=== PATIENT | male | born 1960 | race Caucasian/White ===

== ENCOUNTER 2021-09-17 17:50 | Emergency (ER) | payer MEDICARE, OTHER, SELFPAY ==
--- NOTE | ~2021-09-17 | CT_ITS ---
EXAMINATION: CT HEAD WITHOUT CONTRAST CLINICAL INFORMATION: Right-sided seizure. Question CVA. COMPARISON: CT brain 03/20/2007 TECHNIQUE: Contiguous axial imaging was performed from the skull base to vertex without intravenous administration of contrast. This CT examination was performed using dose optimization techniques as appropriate, variously including the following: *Automated exposure control *Adjustment of mA and/or kV according to patient size (this includes techniques or standardized protocols for targeted exams where dose is matched to indication/reason for exam; i.e. extremities or head) *Use of iterative reconstruction technique DLP: 869 mGy-cm FINDINGS: There are postsurgical changes present from left frontal craniotomy, and along the left orbital wall and the lamina papyracea and the left maxillary sinus. There is opacification of the left maxillary sinus.. Partial opacification left ethmoid sinus. There is encephalomalacia and low attenuation in the left frontal lobe, having a chronic appearance, could be postsurgical in nature. There is prominent artifact from the hardware, limiting evaluation of the underlying brain matter. In the nonobscured portion of the left frontal lobe, no definite acute intracranial hemorrhage is identified. In the remainder of the nonobscured brain,, no acute intracranial hemorrhage is identified. No extra-axial fluid collections are seen. No evidence of edematous territorial infarction is otherwise seen. Mild patchy deep white matter hypodensities suggesting chronic microangiopathy. The mastoid air cells and visualized portions of the paranasal sinuses are well aerated. CT/CT head/brain wo con IMPRESSION: Postsurgical changes including left frontal craniotomy, as described above. Prominent encephalomalacia and hypodensity in the left frontal lobe, appearing chronic in nature, probably reflecting postsurgical changes. Metallic artifact limits evaluation. No definite acute intracranial hemorrhage is identified. Acute infarction superimposed on chronic changes cannot be excluded. Further evaluation with CTA head as clinically warranted. Otherwise, no acute intracranial hemorrhage or edematous territorial infarction is evident by noncontrast CT. Further evaluation with CTA head as clinically warranted. The report will be called to the ordering clinician by a [facility] [employer].
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
--- NOTE | 2021-09-17 17:56 | ECG_ITS ---
Test Reason : RULE OUT STROKE Blood Pressure : / mmHG Vent. Rate : 082 BPM Atrial Rate : 082 BPM P-R Int : 186 ms QRS Dur : 100 ms QT Int : 394 ms P-R-T Axes : 056 -14 002 degrees QTc Int : 460 ms Normal sinus rhythm Minimal voltage criteria for LVH, may be normal variant ( R in aVL ) Inferior infarct , age undetermined Abnormal ECG When compared with ECG of 20-MAR-2007 07:47, No significant change was found Referred By: Javan Rodríguez Electronically Signed By:Martin Chappell
[2021-09-17 18:18] VITALS: BP 161/80; BP 180/90; PULSE 70; PULSE 82; RESP 16; TEMP 36.6; O2SAT 97; BMI 31.4
[2021-09-17 18:58] LABS: MANUAL DIFF FLAG NO
[2021-09-17] MEDS: levETIRAcetam in NaCl (iso-os) 1,000 MG/100 ML PIGGYBACK 400 MG IV (19:07)
[2021-09-17 19:11] LABS: INTERNATIONAL NORM RATIO 1.1 (0.9-1.1); Prothrombin Time 12.9 SEC (9.9-13.0)
[2021-09-17 19:14] LABS: COVID-19 Test Negative (Negative); Partial Thromboplastin Time 32.4 SEC (24.1-38.0)
[2021-09-17 19:17] LABS: Basophils Percent Auto 0.5 % (0-2); Eosinophils Absolute Auto 0.2 X10*3/uL (0.0-0.4); Eosinophils Percent Auto 2.1 % (0-4); Hematocrit 40.3 % (42.0-52.0); Hemoglobin 13.6 g/dl (14.0-18.0); Imm Gran Abs Auto 0.03 X10*3/uL (0.00-0.03); Imm Gran Pct Auto 0.4 % (0.0-0.4); Lymphocytes Absolute Auto 1.1 X10*3/uL (1.2-4.9); Lymphocytes Percent Auto 12.9 % (20-40); Mean Corpuscular HGB Conc 33.7 g/dl (31.0-36.0); Mean Corpuscular Hemoglobin 32.6 pg (27.0-33.0); Mean Corpuscular Volume 96.6 fL (80.0-98.0); Mean Platelet Volume 10.1 fL (9.4-12.4); Monocytes Absolute Auto 0.8 X10*3/uL (0.1-1.2); Monocytes Percent Auto 9.4 % (2-11); Neutrophils Absolute Auto 6.3 x10*3/uL (2.0-8.3); Neutrophils Percent Auto 74.7 % (45-73); Platelet Count 233 X10*3/uL (160-400); Red Blood Count 4.17 X10*6/uL (4.60-5.80); Red Cell Distribution Width 13.8 % (11.0-16.0); White Blood Count 8.4 X10*3/uL (4.8-10.8)
[2021-09-17 19:19] LABS: Alanine Aminotransferase 84 U/L (0-40); Albumin Level 3.8 g/dL (3.5-5.0); Alkaline Phosphatase 137 U/L (39-117); Anion Gap 13 (12-20); Aspartate Amino Transferase 51 U/L (5-37); Bilirubin Total 0.4 mg/dL (0.0-1.0); Blood Urea Nitrogen 23 mg/dL (9-16); Carbon Dioxide 27 mmol/L (22-29); Chloride 108 mmol/L (96-108); Creatinine Clr Calc Pharmacy 115.2; Estimated Glomerular Filt Rate > 60; Glucose Random 191 mg/dL (60-115); Magnesium 1.9 mg/dL (1.6-2.6); Sodium 144 mmol/L (135-145); Total Protein 6.9 g/dL (6.5-8.0)
[2021-09-17 19:43] VITALS: BP 139/69; PULSE 72; RESP 16; TEMP 36.7; O2SAT 98
[2021-09-17 20:11] LABS: Glucose, Whole Blood 179 mg/dL (60-115)
[2021-09-17] MEDS: Tobramycin Sulfate 0.3% Sol Op 5 ML BTL 2 DROP EYE-LEFT (20:38)
[2021-09-17] MEDS: Amoxicillin/Potassium Clav 875 MG TABLET PO (20:38)
== END 2021-09-17 21:10 | disposition home or self-care (01) ==
PROVIDERS: Emergency Provider Internal Medicine; PCP Internal Medicine
DX: H10.32 Unspecified acute conjunctivitis, left eye (principal); R56.9 Unspecified convulsions; Z79.899 Other long term (current) drug therapy; Z20.822 Contact with and (suspected) exposure to COVID-19
CPT/HCPCS: 36415; 70450; 80053; 82947; 83735; 85025; 85610; 85730; 87635; 93005; 96374; 99283; 99284; J1953

== ENCOUNTER 2022-05-09 14:27 | Emergency (ER) | payer MEDICARE, OTHER, SELFPAY ==
[2022-05-09] VITALS (7 sets, daily range): BP systolic 80–130; BP diastolic 45–103; PULSE 70–93; RESP 16–20; TEMP 36.2–37; O2SAT 94–96; BMI 33.7
--- NOTE | ~2022-05-09 | CT_ITS ---
EXAMINATION: CT CHEST WITH CONTRAST CLINICAL INFORMATION: Leukocytosis. Question pneumonia. COMPARISON: Abdominal CT from earlier in the evening. Chest radiograph from earlier in the evening as well. TECHNIQUE: Multidetector volumetric CT imaging of the chest was obtained after the administration of 65 mL of Omnipaque 350 intravenous contrast without immediate adverse reactions. Axial MIP volume rendering provided. Sagittal and coronal reformatted images were obtained. This CT examination was performed using dose optimization techniques as appropriate, variously including the following: *Automated exposure control *Adjustment of mA and/or kV according to patient size (this includes techniques or standardized protocols for targeted exams where dose is matched to indication/reason for exam; i.e. extremities or head) *Use of iterative reconstruction technique DLP: 474 mGy-cm FINDINGS: WOODWORKING BELT SANDER: Unremarkable. LUNGS: The central airways are patent. Small peripheral tree-in-bud opacities in the right middle lobe are noted. Minimal atelectasis in the lingula. No consolidation. The lungs are otherwise clear. No pneumothorax. MEDIASTINUM: Normal heart size. No pericardial effusion. No mediastinal lymphadenopathy. PLEURA: There is no pleural effusion. No pleural mass or thickening. AXILLA: No lymphadenopathy. UPPER ABDOMEN: Low-attenuation of the liver suggestive of hepatic steatosis. OSSEOUS STRUCTURES: No acute or suspicious osseous abnormality. Mild degenerative change in the spine. CT/CT chest w IV con IMPRESSION: 1. Small peripheral tree-in-bud opacities in the right middle lobe could be infectious or inflammatory. The lungs are otherwise clear. 2. Hepatic steatosis. Fleischner guidelines were followed.
--- NOTE | ~2022-05-09 | CT_ITS ---
EXAMINATION: CT ABDOMEN AND PELVIS WITHOUT CONTRAST CLINICAL INFORMATION: Diarrhea, near syncope. COMPARISON: No similar priors. TECHNIQUE: Multidetector volumetric imaging was performed from the superior aspect of the liver through the pubic symphysis. Sagittal and coronal reformatted images were obtained on the technologist's workstation. This CT examination was performed using dose optimization techniques as appropriate, variously including the following: *Automated exposure control *Adjustment of mA and/or kV according to patient size (this includes techniques or standardized protocols for targeted exams where dose is matched to indication/reason for exam; i.e. extremities or head) *Use of iterative reconstruction technique DLP: 769 mGy-cm FINDINGS: LUNG BASES: Very subtle tree-in-bud nodules in the right middle lobe and lingula. No focal consolidation or pleural effusion. LIVER, GALLBLADDER, AND BILIARY TREE: The liver measures 19.8 cm craniocaudally and demonstrates heterogeneous attenuation of the parenchyma with differential hypointensity of the majority of the right hepatic lobe when compared to the left lobe. There is suggestion of perhaps a minimal nodular contour of the hepatic surface. The background of heterogeneous attenuation limits evaluation of focal liver lesions in this noncontrast examination. Normal appearance of the gallbladder. No biliary ductal dilatation. PANCREAS: Fatty infiltration. No significant peripancreatic fat stranding or free fluid. The main pancreatic duct is nondilated. SPLEEN: Limited noncontrast examination, unremarkable. ADRENAL GLANDS: There is a 1 cm right adrenal nodule measuring less than 10 Hounsfield units in attenuation (3:18). Normal left adrenal gland. KIDNEYS AND URETERS: No hydronephrosis or nephrolithiasis. Bilateral too small to characterize cortical hypodensities that is statistically are in favor to represent simple cysts and for which no imaging follow-up is recommended. BLADDER: Unremarkable. GASTROINTESTINAL TRACT: The stomach and the small bowel are nondilated. The appendix is not definitely identified, however there are no regional inflammatory changes to suspect acute appendicitis. The left hemicolon is under distended limiting assessment of wall thickening. There is moderate amount of stool content in the right hemicolon and rectum. No pericolonic inflammatory changes. No evidence of bowel obstruction. ABDOMINAL WALL: No significant hernia is appreciated. LYMPH NODES: Lyric appearance of the upper mesentery fat with associated prominent mesenteric lymph nodes measuring up to 1 cm short axis. VASCULAR: Limited noncontrast examination. Normal diameter of the abdominal aorta. Atherosclerotic disease. PELVIC VISCERA: Borderline prostatomegaly. OSSEOUS STRUCTURES: Subtle superior endplate deformities at T10 and T11. The are changes of the spine. CT/CT abdomen pelvis wo IV con IMPRESSION: 1. Very subtle tree-in-bud nodules in the right middle lobe and lingula could be related with an infectious or inflammatory process of the small airways. 2. Hepatomegaly with heterogeneous attenuation of the liver parenchyma and equivocal nodular contour that could be seen in the setting of cirrhosis or other hepatocellular disease. There is differential low density of the right lobe of the liver with respect to the left lobe, which is nonspecific and could be related with a perfusional or fatty abnormality, however evaluation of underlying lesions is very limited in the absence of IV contrast. Recommend correlation with an MR of the abdomen with and without intravenous contrast. 3. Lyric appearance of the upper mesentery with associated prominent mesenteric lymph nodes. This is a fairly nonspecific finding that could be seen for example in the setting of mesenteric panniculitis. 4. Evaluation of colonic wall thickening is overall limited due to luminal underdistention. There is no significant pericolonic inflammatory changes. No evidence of bowel obstruction. 5. Borderline prostatomegaly. 6. Subtle superior endplate deformities at T10 and T11, age indeterminate. Correlate for point tenderness and if indicated, consider further evaluation with an MR of the thoracic and lumbar spine. 7. Incidentally noted 1 cm right adrenal nodule measuring less than 10 Hounsfield units, favoring to represent a lipid rich adenoma for which no imaging follow-up is recommended.
--- NOTE | ~2022-05-09 | XR_ITS ---
EXAMINATION: XR CHEST CLINICAL INFORMATION: Lethargy. COMPARISON: Chest radiographs dated 01/23/2008. TECHNIQUE: Frontal view of the chest was obtained. FINDINGS: No significant abnormality is noted involving the heart, lungs, mediastinum, bony thorax or soft tissues. XR/XR chest 1V IMPRESSION: No acute cardiopulmonary process.
--- NOTE | 2022-05-09 14:46 | ED_ITS ---
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 Total Bilirubin (0.0-1.0) mg/dL Direct Bilirubin (0.0-0.5) mg/dL AST (5-37) U/L ALT (0-40) U/L Alkaline Phosphatase (39-117) U/L Troponin I High Sens 21.6 (<3.5-35.0) ng/L Total Protein (6.5-8.0) g/dL Albumin (3.5-5.0) g/dL Lipase (8-78) U/L Urine Color Urine Appearance Urine pH (5.0-9.0) Ur Specific [place] (1.005-1.025) Urine Protein (Neg-Trace) mg/dL Urine Glucose (UA) (Negative) mg/dL Urine Ketones (Negative) mg/dL Urine Blood (Negative) Urine Nitrite (Negative) Ur Leukocyte Esterase (Negative) Urine RBC (0-2) /HPF Urine WBC (0-5) /HPF Ur Squamous Epith Cells (0-2) /HPF Urine Bacteria (None Seen) Hyaline Casts (0-2) /LPF Granular Casts C. difficile Tox B Gene (Negative) Influenza Type A (PCR) NEGATIVE (Negative) Influenza Type B (PCR) NEGATIVE (Negative) RSV RNA Qual (PCR) NEGATIVE (Negative) SARS-CoV-2 RNA (RT-PCR) NEGATIVE (Negative) 05/09/22 05/09/22 05/09/22 Range/Units 15:36 16:44 16:44 WBC (4.8-10.8) X10*3/uL RBC (4.60-5.80) X10*6/uL Hgb (14.0-18.0) g/dl Hct (42.0-52.0) % MCV (80.0-98.0) fL MCH (27.0-33.0) pg MCHC (31.0-36.0) g/dl RDW (11.0-16.0) % Plt Count (160-400) X10*3/uL MPV (9.4-12.4) fL Immature Gran % (Auto) (0.0-0.4) % Neut % (Auto) (45-73) % Lymph % (Auto) (20-40) % [place] % (Auto) (2-11) % Eos % (Auto) (0-4) % Baso % (Auto) (0-2) % Lymph # (Auto) (1.2-4.9) X10*3/uL [place] # (Auto) (0.1-1.2) X10*3/uL Eos # (Auto) (0.0-0.4) X10*3/uL Baso # (Auto) (0.0-0.2) X10*3/uL Abs Immat Gran (auto) (0.00-0.03) X10*3/uL Absolute Neuts (auto) (2.0-8.3) x10*3/uL Absolute Nucleated RBC (0.0-0.012) X10*3/uL Nucleated RBC % (auto) (0.0-0.2) /100WBC PT 11.5 (10.0-13.1) SEC INR 1.0 (0.9-1.1) Sodium 142 (135-145) mmol/L Potassium 3.4 (3.3-5.1) mmol/L Chloride 109 H (96-108) mmol/L Carbon Dioxide 20 L (22-29) mmol/L Anion Gap 16 (12-20) BUN 27 H (9-16) mg/dL Creatinine 1.04 (0.5-1.4) mg/dL Estim Creat Clear Calc 87.7 Estimated GFR > 60 Random Glucose 149 H (60-115) mg/dL Lactic Acid 2.9 H* (0.5-2.0) mmol/L Lactic Acid F/U @ 2Hr (0.5-2.0) mmol/L Lactic Acid F/U @ 4Hr (0.5-2.0) mmol/L Calcium 9.1 (8.4-10.2) mg/dL Magnesium 1.6 (1.6-2.6) mg/dL Total Bilirubin 0.8 (0.0-1.0) mg/dL Direct Bilirubin 0.2 (0.0-0.5) mg/dL AST 23 (5-37) U/L ALT 31 (0-40) U/L Alkaline Phosphatase 65 (39-117) U/L Troponin I High Sens (<3.5-35.0) ng/L Total Protein 6.0 L (6.5-8.0) g/dL Albumin 3.4 L (3.5-5.0) g/dL Lipase 32 (8-78) U/L Urine Color Urine Appearance Urine pH (5.0-9.0) Ur Specific [place] (1.005-1.025) Urine Protein (Neg-Trace) mg/dL Urine Glucose (UA) (Negative) mg/dL Urine Ketones (Negative) mg/dL Urine Blood (Negative) Urine Nitrite (Negative) Ur Leukocyte Esterase (Negative) Urine RBC (0-2) /HPF Urine WBC (0-5) /HPF Ur Squamous Epith Cells (0-2) /HPF Urine Bacteria (None Seen) Hyaline Casts (0-2) /LPF Granular Casts C. difficile Tox B Gene (Negative) Influenza Type A (PCR) (Negative) Influenza Type B (PCR) (Negative) RSV RNA Qual (PCR) (Negative) SARS-CoV-2 RNA (RT-PCR) (Negative) 05/09/22 05/09/22 05/09/22 Range/Units 18:19 19:26 21:02 WBC (4.8-10.8) X10*3/uL RBC (4.60-5.80) X10*6/uL Hgb (14.0-18.0) g/dl Hct (42.0-52.0) % MCV (80.0-98.0) fL MCH (27.0-33.0) pg MCHC (31.0-36.0) g/dl RDW (11.0-16.0) % Plt Count (160-400) X10*3/uL MPV (9.4-12.4) fL Immature Gran % (Auto) (0.0-0.4) % Neut % (Auto) (45-73) % Lymph % (Auto) (20-40) % [place] % (Auto) (2-11) % Eos % (Auto) (0-4) % Baso % (Auto) (0-2) % Lymph # (Auto) (1.2-4.9) X10*3/uL [place] # (Auto) (0.1-1.2) X10*3/uL Eos # (Auto) (0.0-0.4) X10*3/uL Baso # (Auto) (0.0-0.2) X10*3/uL Abs Immat Gran (auto) (0.00-0.03) X10*3/uL Absolute Neuts (auto) (2.0-8.3) x10*3/uL Absolute Nucleated RBC (0.0-0.012) X10*3/uL Nucleated RBC % (auto) (0.0-0.2) /100WBC PT (10.0-13.1) SEC INR (0.9-1.1) Sodium (135-145) mmol/L Potassium (3.3-5.1) mmol/L Chloride (96-108) mmol/L Carbon Dioxide (22-29) mmol/L Anion Gap (12-20) BUN (9-16) mg/dL Creatinine (0.5-1.4) mg/dL Estim Creat Clear Calc Estimated GFR Random Glucose (60-115) mg/dL Lactic Acid (0.5-2.0) mmol/L Lactic Acid F/U @ 2Hr 2.7 H* (0.5-2.0) mmol/L Lactic Acid F/U @ 4Hr (0.5-2.0) mmol/L Calcium (8.4-10.2) mg/dL Magnesium (1.6-2.6) mg/dL Total Bilirubin (0.0-1.0) mg/dL Direct Bilirubin (0.0-0.5) mg/dL AST (5-37) U/L ALT (0-40) U/L Alkaline Phosphatase (39-117) U/L Troponin I High Sens 37.7 H 51.8 H (<3.5-35.0) ng/L Total Protein (6.5-8.0) g/dL Albumin (3.5-5.0) g/dL Lipase (8-78) U/L Urine Color Urine Appearance Urine pH (5.0-9.0) Ur Specific [place] (1.005-1.025) Urine Protein (Neg-Trace) mg/dL Urine Glucose (UA) (Negative) mg/dL Urine Ketones (Negative) mg/dL Urine Blood (Negative) Urine Nitrite (Negative) Ur Leukocyte Esterase (Negative) Urine RBC (0-2) /HPF Urine WBC (0-5) /HPF Ur Squamous Epith Cells (0-2) /HPF Urine Bacteria (None Seen) Hyaline Casts (0-2) /LPF Granular Casts C. difficile Tox B Gene (Negative) Influenza Type A (PCR) (Negative) Influenza Type B (PCR) (Negative) RSV RNA Qual (PCR) (Negative) SARS-CoV-2 RNA (RT-PCR) (Negative) 05/09/22 05/09/22 05/10/22 Range/Units 21:02 22:14 00:08 WBC (4.8-10.8) X10*3/uL RBC (4.60-5.80) X10*6/uL Hgb (14.0-18.0) g/dl Hct (42.0-52.0) % MCV (80.0-98.0) fL MCH (27.0-33.0) pg MCHC (31.0-36.0) g/dl RDW (11.0-16.0) % Plt Count (160-400) X10*3/uL MPV (9.4-12.4) fL Immature Gran % (Auto) (0.0-0.4) % Neut % (Auto) (45-73) % Lymph % (Auto) (20-40) % [place] % (Auto) (2-11) % Eos % (Auto) (0-4) % Baso % (Auto) (0-2) % Lymph # (Auto) (1.2-4.9) X10*3/uL [place] # (Auto) (0.1-1.2) X10*3/uL Eos # (Auto) (0.0-0.4) X10*3/uL Baso # (Auto) (0.0-0.2) X10*3/uL Abs Immat Gran (auto) (0.00-0.03) X10*3/uL Absolute Neuts (auto) (2.0-8.3) x10*3/uL Absolute Nucleated RBC (0.0-0.012) X10*3/uL Nucleated RBC % (auto) (0.0-0.2) /100WBC PT (10.0-13.1) SEC INR (0.9-1.1) Sodium (135-145) mmol/L Potassium (3.3-5.1) mmol/L Chloride (96-108) mmol/L Carbon Dioxide (22-29) mmol/L Anion Gap (12-20) BUN (9-16) mg/dL Creatinine (0.5-1.4) mg/dL Estim Creat Clear Calc Estimated GFR Random Glucose (60-115) mg/dL Lactic Acid (0.5-2.0) mmol/L Lactic Acid F/U @ 2Hr (0.5-2.0) mmol/L Lactic Acid F/U @ 4Hr 2.2 H* (0.5-2.0) mmol/L Calcium (8.4-10.2) mg/dL Magnesium (1.6-2.6) mg/dL Total Bilirubin (0.0-1.0) mg/dL Direct Bilirubin (0.0-0.5) mg/dL AST (5-37) U/L ALT (0-40) U/L Alkaline Phosphatase (39-117) U/L Troponin I High Sens (<3.5-35.0) ng/L Total Protein (6.5-8.0) g/dL Albumin (3.5-5.0) g/dL Lipase (8-78) U/L Urine Color Yellow Urine Appearance Cloudy Urine pH 5.5 (5.0-9.0) Ur Specific [place] 1.025 (1.005-1.025) Urine Protein 30 (1+) H (Neg-Trace) mg/dL Urine Glucose (UA) Negative (Negative) mg/dL Urine Ketones Negative (Negative) mg/dL Urine Blood Negative (Negative) Urine Nitrite Negative (Negative) Ur Leukocyte Esterase Negative (Negative) Urine RBC 0-2 (0-2) /HPF Urine WBC 0-5 (0-5) /HPF Ur Squamous Epith Cells 3-5 (0-2) /HPF Urine Bacteria None Seen (None Seen) Hyaline Casts 6-10 (0-2) /LPF Granular Casts Present C. difficile Tox B Gene NEGATIVE (Negative) Influenza Type A (PCR) (Negative) Influenza Type B (PCR) (Negative) RSV RNA Qual (PCR) (Negative) SARS-CoV-2 RNA (RT-PCR) (Negative) 05/10/22 05/10/22 Range/Units 00:08 00:08 WBC 10.1 (4.8-10.8) X10*3/uL RBC 4.67 (4.60-5.80) X10*6/uL Hgb 14.7 (14.0-18.0) g/dl Hct 42.7 (42.0-52.0) % MCV 91.4 (80.0-98.0) fL MCH 31.5 (27.0-33.0) pg MCHC 34.4 (31.0-36.0) g/dl RDW 14.1 (11.0-16.0) % Plt Count 212 (160-400) X10*3/uL MPV 10.2 (9.4-12.4) fL Immature Gran % (Auto) 0.2 (0.0-0.4) % Neut % (Auto) 76.2 H (45-73) % Lymph % (Auto) 13.1 L (20-40) % [place] % (Auto) 9.3 (2-11) % Eos % (Auto) 0.8 (0-4) % Baso % (Auto) 0.4 (0-2) % Lymph # (Auto) 1.3 (1.2-4.9) X10*3/uL [place] # (Auto) 0.9 (0.1-1.2) X10*3/uL Eos # (Auto) 0.1 (0.0-0.4) X10*3/uL Baso # (Auto) 0.0 (0.0-0.2) X10*3/uL Abs Immat Gran (auto) 0.02 (0.00-0.03) X10*3/uL Absolute Neuts (auto) 7.7 (2.0-8.3) x10*3/uL Absolute Nucleated RBC 0.000 (0.0-0.012) X10*3/uL Nucleated RBC % (auto) 0.0 (0.0-0.2) /100WBC PT (10.0-13.1) SEC INR (0.9-1.1) Sodium 142 (135-145) mmol/L Potassium 3.1 L (3.3-5.1) mmol/L Chloride 110 H (96-108) mmol/L Carbon Dioxide 23 (22-29) mmol/L Anion Gap 12 (12-20) BUN 24 H (9-16) mg/dL Creatinine 0.87 (0.5-1.4) mg/dL Estim Creat Clear Calc 104.8 Estimated GFR > 60 Random Glucose 199 H (60-115) mg/dL Lactic Acid (0.5-2.0) mmol/L Lactic Acid F/U @ 2Hr (0.5-2.0) mmol/L Lactic Acid F/U @ 4Hr (0.5-2.0) mmol/L Calcium 8.4 D (8.4-10.2) mg/dL Magnesium (1.6-2.6) mg/dL Total Bilirubin 0.7 (0.0-1.0) mg/dL Direct Bilirubin (0.0-0.5) mg/dL AST 19 (5-37) U/L ALT 31 (0-40) U/L Alkaline Phosphatase 58 (39-117) U/L Troponin I High Sens (<3.5-35.0) ng/L Total Protein 5.8 L (6.5-8.0) g/dL Albumin 3.4 L (3.5-5.0) g/dL Lipase (8-78) U/L Urine Color Urine Appearance Urine pH (5.0-9.0) Ur Specific [place] (1.005-1.025) Urine Protein (Neg-Trace) mg/dL Urine Glucose (UA) (Negative) mg/dL Urine Ketones (Negative) mg/dL Urine Blood (Negative) Urine Nitrite (Negative) Ur Leukocyte Esterase (Negative) Urine RBC (0-2) /HPF Urine WBC (0-5) /HPF Ur Squamous Epith Cells (0-2) /HPF Urine Bacteria (None Seen) Hyaline Casts (0-2) /LPF Granular Casts C. difficile Tox B Gene (Negative) Influenza Type A (PCR) (Negative) Influenza Type B (PCR) (Negative) RSV RNA Qual (PCR) (Negative) SARS-CoV-2 RNA (RT-PCR) (Negative) <TYE Eduardo - Last Filed: 05/10/22 01:19> Independent Interpretation I performed an independent interpretation of an: EKG <TYE Perry - Last Filed: 05/09/22 17:38> Radiology Impression Discussion of test interpretation with radiology: I have reviewed the radiologist's reading. <TYE Perry - Last Filed: 05/09/22 17:38> External Record Review Prior ED record <TYE Perry - Last Filed: 05/09/22 17:38> Critical Care Time Critical Care Time Critical Care Time: Yes <TYE Perry - Last Filed: 05/09/22 17:38> Total Critical Care Time: 45 <TYE Perry - Last Filed: 05/09/22 17:38> Attestation: I have personally provided critical care time exclusive of time spent on separately billable procedures. Time includes review of lab data, radiology results, discussion with consultants, and monitoring for potential decompensation. Intervention performed as documented. <TYE Perry - Last Filed: 05/09/22 17:38> Discharge Plan Discharge Clinical Impression: Diarrhea, Generalized weakness, Vasovagal near syncope, Elevated troponin level, Dehydration, Colitis, Left against medical advice <TYE Perry - Last Filed: 05/09/22 17:38> Patient Disposition: Home, Self-Care <TYE Perry - Last Filed: 05/09/22 17:38> Additional Instructions: Take your medications as prescribed. If you were prescribed antibiotics today, it is important that you take your medication to their entirety, do not skip any doses, do not finish them early. Follow-up with your primary care provider this week. Follow-up with cardiology and GI within a week Return to the emergency department with new or worsening symptoms. Such as fevers, chills, chest pain, shortness of breath, nausea, vomiting, dizziness, headache, vision changes, lethargy In case of emergency call 911 He decided to leave against medical advice and verbalize risks of leaving such as worsening condition, infection, sepsis, . Please return with new or worsening symptoms Antibiotics have been sent for diarrhea/colitis, please take them as prescribed. Please note that levofloxacin is an antibiotic that belongs to the class called fluoroquinolones which has a black box warning of tendon rupture, please do not participate in vigorous activities or any strenuous activity while taking these as this can increase risk. If you experience pain around the tendon or joint pa in please seek medical attention and stop antibiotics immediately. <TYE Perry - Last Filed: 05/09/22 17:38> Prescriptions: New metronidazole 500 mg tablet 500 mg PO BID 7 Days Qty: 14 0RF levofloxacin 750 mg tablet 750 mg PO DAILY 7 Days Qty: 7 0RF No Action levetiracetam [Keppra] 500 mg tablet 500 mg PO BID Qty: 60 0RF amoxicillin-pot clavulanate 875-125 mg tablet 1 tab PO BID Qty: 20 0RF tobramycin 0.3 % drops 2 drp ophthalmic-Left Q4H Qty: 5 0RF <TYE Perry - Last Filed: 05/09/22 17:38> [place] [facility] [place] [facility] [facility] [place] - 3 [place] [facility] [place]Provider Group[place] - 3 days Lisbeth Desai MD [Primary Care Provider] - 2 days <TYE Perry - Last Filed: 05/09/22 17:38> Stand Alone Forms: Against Medical Advice, Work/School Release <TYE Perry - Last Filed: 05/09/22 17:38>
--- NOTE | 2022-05-09 14:53 | ECG_ITS ---
Test Reason : ABDOMINAL PAIN Blood Pressure : / mmHG Vent. Rate : 069 BPM Atrial Rate : 069 BPM P-R Int : 190 ms QRS Dur : 098 ms QT Int : 416 ms P-R-T Axes : 007 -23 -05 degrees QTc Int : 445 ms Normal sinus rhythm Minimal voltage criteria for LVH, may be normal variant ( R in aVL ) Inferior infarct (cited on or before 17-SEP-2021) Abnormal ECG When compared with ECG of 17-SEP-2021 19:28, No significant change was found Referred By: Stefanie Rider Electronically Signed By:Martin Chappell
[2022-05-09] MEDS: 0.9 % Sodium Chloride 1,000 ML 999 ML IV ×3 (15:00→21:02)
[2022-05-09 15:52] LABS: MANUAL DIFF FLAG NO
[2022-05-09 15:54] LABS: Basophils Percent Auto 0.2 % (0-2); Eosinophils Percent Auto 0.2 % (0-4); Hematocrit 48.3 % (42.0-52.0); Hemoglobin 16.7 g/dl (14.0-18.0); Imm Gran Abs Auto 0.06 X10*3/uL (0.00-0.03); Imm Gran Pct Auto 0.4 % (0.0-0.4); Lymphocytes Absolute Auto 1.7 X10*3/uL (1.2-4.9); Lymphocytes Percent Auto 10.5 % (20-40); Mean Corpuscular HGB Conc 34.6 g/dl (31.0-36.0); Mean Corpuscular Hemoglobin 31.5 pg (27.0-33.0); Mean Platelet Volume 10.2 fL (9.4-12.4); Monocytes Absolute Auto 1.2 X10*3/uL (0.1-1.2); Monocytes Percent Auto 7.1 % (2-11); Neutrophils Absolute Auto 13.5 x10*3/uL (2.0-8.3); Neutrophils Percent Auto 81.6 % (45-73); Platelet Count 241 X10*3/uL (160-400); Red Blood Count 5.31 X10*6/uL (4.60-5.80); Red Cell Distribution Width 13.9 % (11.0-16.0); White Blood Count 16.6 X10*3/uL (4.8-10.8)
[2022-05-09 16:18] LABS: Alanine Aminotransferase 31 U/L (0-40); Albumin Level 3.4 g/dL (3.5-5.0); Alkaline Phosphatase 65 U/L (39-117); Anion Gap 16 (12-20); Aspartate Amino Transferase 23 U/L (5-37); Bilirubin Direct 0.2 mg/dL (0.0-0.5); Bilirubin Total 0.8 mg/dL (0.0-1.0); Blood Urea Nitrogen 27 mg/dL (9-16); Calcium 9.1 mg/dL (8.4-10.2); Carbon Dioxide 20 mmol/L (22-29); Chloride 109 mmol/L (96-108); Creatinine Clr Calc Pharmacy 87.7; Estimated Glomerular Filt Rate > 60; Glucose Random 149 mg/dL (60-115); Lipase 32 U/L (8-78); Magnesium 1.6 mg/dL (1.6-2.6); Potassium 3.4 mmol/L (3.3-5.1); Sodium 142 mmol/L (135-145)
[2022-05-09 16:24] LABS: Troponin-I High Sensitivity 21.6 ng/L (<3.5-35.0)
[2022-05-09 16:42] LABS: Influenza A PCR NEGATIVE (Negative); Influenza B PCR NEGATIVE (Negative); Resp Syncy Virus RNA Qual PCR NEGATIVE (Negative); SARS COV2 PCR INHOUSE NEGATIVE (Negative)
[2022-05-09 17:02] LABS: Prothrombin Time 11.5 SEC (10.0-13.1)
[2022-05-09 17:20] LABS: Lactic Acid 2.9 mmol/L (0.5-2.0)
[2022-05-09] MEDS: Piperacillin Sodium/Tazobactam 4.5 GM in 0.9 % Sodium Chloride 100 ML IV (18:09)
[2022-05-09 18:50] LABS: Reflex Lactate? Lactic Acid Added
[2022-05-09 19:07] LABS: Troponin-I High Sensitivity 37.7 ng/L (<3.5-35.0)
[2022-05-09 20:03] LABS: ~Lactic Acid-LAB USE ONLY 2.7 mmol/L (0.5-2.0)
--- NOTE | 2022-05-09 21:12 | PC.NURSE ---
Assessment: Pt's V/S are stable, Pt spouse is at bedside. Pt has hypoactive sound all quadrants, pt denies constipation but says is is bloated. Pt abd is rigid, pt has fully strength on upper/lower extremities, pt lungs sounds are clear throughout bilaterally. pt is a/o x4, and has + skin turgor. 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
[2022-05-09 21:20] LABS: Appearance Urine Cloudy; Color Urine Yellow; Glucose Urine UA Negative (Negative); Leukocyte Esterase Urine Negative (Negative); Nitrite Urine Negative (Negative); PH 5.5 (5.0-9.0); Specific Gravity - Urine 1.025 (1.005-1.025); UMIC TRIGGER UACC YES; Urine Blood Negative (Negative); Urine Ketones Negative (Negative); Urine Protein 30 (1+) mg/dL (Neg-Trace)
[2022-05-09 21:30] LABS: Reflex Lactate? 2 Y
--- NOTE | 2022-05-09 21:37 | MHC.EDTECH ---
Addendum entered by Mukesh Friedman 05/09/22 21:38: per Sigrid GAMBLE Original Note: lactic will be drawn when fluids are done.
[2022-05-09 21:41] LABS: Troponin-I High Sensitivity 51.8 ng/L (<3.5-35.0)
[2022-05-09 21:53] LABS: Bacteria Urine None Seen (None Seen); Granular Casts Urine Present; RBC Urine 0-2 /HPF (0-2); WBC Urine 0-5 /HPF (0-5)
[2022-05-09 23:08] LABS: CDiff Gene PCR NEGATIVE (Negative)
[2022-05-10 00:12] LABS: Basophils Percent Auto 0.4 % (0-2); Eosinophils Absolute Auto 0.1 X10*3/uL (0.0-0.4); Eosinophils Percent Auto 0.8 % (0-4); Hematocrit 42.7 % (42.0-52.0); Hemoglobin 14.7 g/dl (14.0-18.0); Imm Gran Abs Auto 0.02 X10*3/uL (0.00-0.03); Imm Gran Pct Auto 0.2 % (0.0-0.4); Lymphocytes Absolute Auto 1.3 X10*3/uL (1.2-4.9); Lymphocytes Percent Auto 13.1 % (20-40); MANUAL DIFF FLAG NO; Mean Corpuscular HGB Conc 34.4 g/dl (31.0-36.0); Mean Corpuscular Hemoglobin 31.5 pg (27.0-33.0); Mean Corpuscular Volume 91.4 fL (80.0-98.0); Mean Platelet Volume 10.2 fL (9.4-12.4); Monocytes Absolute Auto 0.9 X10*3/uL (0.1-1.2); Monocytes Percent Auto 9.3 % (2-11); Neutrophils Absolute Auto 7.7 x10*3/uL (2.0-8.3); Neutrophils Percent Auto 76.2 % (45-73); Platelet Count 212 X10*3/uL (160-400); Red Blood Count 4.67 X10*6/uL (4.60-5.80); Red Cell Distribution Width 14.1 % (11.0-16.0); White Blood Count 10.1 X10*3/uL (4.8-10.8)
[2022-05-10 00:37] LABS: ~Lactic Acid-LAB USE ONLY 2.2 mmol/L (0.5-2.0)
[2022-05-10 00:41] LABS: Alanine Aminotransferase 31 U/L (0-40); Albumin Level 3.4 g/dL (3.5-5.0); Alkaline Phosphatase 58 U/L (39-117); Anion Gap 12 (12-20); Aspartate Amino Transferase 19 U/L (5-37); Bilirubin Total 0.7 mg/dL (0.0-1.0); Blood Urea Nitrogen 24 mg/dL (9-16); Calcium 8.4 mg/dL (8.4-10.2); Carbon Dioxide 23 mmol/L (22-29); Chloride 110 mmol/L (96-108); Creatinine Clr Calc Pharmacy 104.8; Estimated Glomerular Filt Rate > 60; Glucose Random 199 mg/dL (60-115); Potassium 3.1 mmol/L (3.3-5.1); Sodium 142 mmol/L (135-145); Total Protein 5.8 g/dL (6.5-8.0)
[2022-05-10 01:15] VITALS: BP 142/81; PULSE 72; RESP 14; O2SAT 98
[2022-05-10] MEDS: iohexoL 350 MG/ML 100 ML INFUS..BTL 65 ML IV (01:25)
[2022-05-10] MEDS: Potassium Chloride Packet 20 MEQ PACKET 40 MEQ PO (01:57)
--- NOTE | 2022-05-10 04:38 | PC.NURSE ---
Pt's V/S are stable, pt left [facility] and spouse was present. Provider and this nurse provided the risk factor about leaving with his lactic acid high. Pt pursued to leave.
[2022-05-10 11:19] LABS: Campylobacter Not Detected (Not Detect.); Plesiomonas shigelloides Not Detected (Not Detect.); Salmonella Not Detected (Not Detect.); Vibrio Not Detected (Not Detect.); Vibrio Cholerae Not Detected (Not Detect.)
[2022-05-10 11:20] LABS: Adenovirus F 40/41 Not Detected (Not Detect.); Astrovirus Not Detected (Not Detect.); Cryptosporidium Not Detected (Not Detect.); Cyclospora cayetanensis Not Detected (Not Detect.); E. coli EAEC Not Detected (Not Detect.); E. coli EPEC Not Detected (Not Detect.); E. coli ETEC Not Detected (Not Detect.); E. coli STEC Not Detected (Not Detect.); Entamoeba histolytica Not Detected (Not Detect.); Giardia lamblia Not Detected (Not Detect.); Norovirus GI/GII Not Detected (Not Detect.); Rotavirus A Not Detected (Not Detect.); Sapovirus Not Detected (Not Detect.); Shigella sp./EIEC Not Detected (Not Detect.); Yersinia enterocolitica Not Detected (Not Detect.)
== END 2022-05-10 04:40 | disposition left against medical advice (07) ==
PROVIDERS: Physician Assistant; Emergency Provider Emergency Medicine; PCP Internal Medicine
DX: K52.9 Noninfective gastroenteritis and colitis, unspecified (principal); R55 Syncope and collapse; E86.0 Dehydration; R06.02 Shortness of breath; R07.89 Other chest pain; I10 Essential (primary) hypertension; Z20.822 Contact with and (suspected) exposure to COVID-19; Z20.828 Contact with and (suspected) exposure to other viral communicable diseases; Z79.899 Other long term (current) drug therapy
CPT/HCPCS: 0241U; 36415; 71045; 71260; 74176; 80048; 80053; 80076; 81001; 83605; 83690; 83735; 84484; 85025; 85610; 87040; 87493; 87507; 93005; 96361; 96365; 99285; J2543; Q9967

== ENCOUNTER 2022-05-21 15:43 | Emergency (ER) | payer MEDICARE, OTHER, SELFPAY ==
--- NOTE | 2022-05-21 | ECG_ITS ---
Test Reason : WEAKNESS Blood Pressure : / mmHG Vent. Rate : 085 BPM Atrial Rate : 086 BPM P-R Int : 188 ms QRS Dur : 100 ms QT Int : 416 ms P-R-T Axes : 028 -47 028 degrees QTc Int : 495 ms Normal sinus rhythm Minimal voltage criteria for LVH, may be normal variant ( R in aVL ) Inferior infarct (cited on or before 17-SEP-2021) Abnormal ECG When compared with ECG of 09-MAY-2022 18:49, Nonspecific T wave abnormality has replaced inverted T waves in Inferior leads QT has lengthened Referred By: Generic ED Physician Electronically Signed By:SAMM SAMSON
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
[2022-05-21 15:51] VITALS: BP 118/92; PULSE 83; RESP 18; TEMP 36.4; O2SAT 94
[2022-05-21 15:58] VITALS: BP 107/70; BP 118/92; PULSE 70; PULSE 84; RESP 18; TEMP 36.5; O2SAT 95; BMI 33.7
[2022-05-21 16:22] LABS: MANUAL DIFF FLAG NO
--- NOTE | 2022-05-21 16:33 | PC.NURSE ---
MD at bedside patient complaint of tingling in hands patient report of slurred speech, per EMS has been ongoing since suicide attempt.
[2022-05-21 16:37] LABS: Basophils Percent Auto 0.1 % (0-2); Eosinophils Absolute Auto 0.1 X10*3/uL (0.0-0.4); Eosinophils Percent Auto 0.9 % (0-4); Hemoglobin 16.5 g/dl (14.0-18.0); Imm Gran Abs Auto 0.03 X10*3/uL (0.00-0.03); Imm Gran Pct Auto 0.3 % (0.0-0.4); Mean Corpuscular HGB Conc 34.4 g/dl (31.0-36.0); Mean Corpuscular Hemoglobin 31.8 pg (27.0-33.0); Mean Corpuscular Volume 92.5 fL (80.0-98.0); Mean Platelet Volume 10.1 fL (9.4-12.4); Monocytes Absolute Auto 0.3 X10*3/uL (0.1-1.2); Monocytes Percent Auto 3.3 % (2-11); Neutrophils Absolute Auto 7.1 x10*3/uL (2.0-8.3); Neutrophils Percent Auto 74.4 % (45-73); Platelet Count 254 X10*3/uL (160-400); Red Blood Count 5.19 X10*6/uL (4.60-5.80); Red Cell Distribution Width 13.5 % (11.0-16.0); White Blood Count 9.5 X10*3/uL (4.8-10.8)
[2022-05-21 16:40] LABS: Alanine Aminotransferase 36 U/L (0-40); Albumin Level 3.5 g/dL (3.5-5.0); Alkaline Phosphatase 76 U/L (39-117); Anion Gap 15 (12-20); Aspartate Amino Transferase 22 U/L (5-37); Blood Urea Nitrogen 19 mg/dL (9-16); Calcium 8.7 mg/dL (8.4-10.2); Carbon Dioxide 25 mmol/L (22-29); Chloride 105 mmol/L (96-108); Creatinine Clr Calc Pharmacy 77.9; Estimated Glomerular Filt Rate > 60; Glucose Random 171 mg/dL (60-115); Sodium 141 mmol/L (135-145); Total Protein 6.1 g/dL (6.5-8.0)
[2022-05-21 16:48] LABS: Troponin-I High Sensitivity 6.3 ng/L (<3.5-35.0)
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
--- NOTE | 2022-05-21 17:16 | PC.NURSE ---
Patient up ambulatory to bathroom continent of urine
[2022-05-21 17:32] LABS: B Type Natriuretic Peptide < 10 pg/mL (<100)
[2022-05-21 17:46] VITALS: BP 137/89; PULSE 90; RESP 16; O2SAT 95
[2022-05-21] MEDS: iohexoL 350 MG/ML 100 ML INFUS..BTL IV (18:39)
[2022-05-21 21:02] VITALS: BP 136/95; PULSE 79; RESP 16; TEMP 36.6; O2SAT 95
--- NOTE | 2022-05-21 21:07 | PC.NURSE ---
Pt FLORIAN x 4 denies pain numbness and tingling to bilateral extremities
== END 2022-05-21 22:26 | disposition home or self-care (01) ==
PROVIDERS: Emergency Provider Emergency Medicine; PCP Internal Medicine
DX: R42 Dizziness and giddiness (principal); R20.2 Paresthesia of skin; Z79.899 Other long term (current) drug therapy; I10 Essential (primary) hypertension; G93.89 Other specified disorders of brain; Z87.828 Personal history of other (healed) physical injury and trauma
CPT/HCPCS: 36415; 70496; 70498; 80053; 83880; 84484; 85025; 93005; 99284; Q9967

== ENCOUNTER 2022-06-05 13:28 | Outpatient (REF) | payer MEDICARE, OTHER, SELFPAY ==
--- NOTE | ~2022-06-05 | MR_ITS ---
EXAMINATION: MR ABDOMEN WITHOUT AND WITH CONTRAST CLINICAL INFORMATION: Question abnormal liver on CT scan. COMPARISON: Previous CT of the abdomen and pelvis 04/2022. TECHNIQUE: MR abdomen was performed without and with use of 10 mL intravenous Gadavist gadolinium contrast. Postcontrast images are performed in multiphase dynamic sequences. Imaging was performed in 3 planes. FINDINGS: LUNG BASES: The visualized lung bases are unremarkable. LIVER, GALLBLADDER, AND BILIARY TREE: The liver is slightly enlarged. Liver contour is normal. There is heterogeneous signal loss in the liver on [id number] sequences, suggestive of areas of fatty infiltration and focal fatty sparing. No suspicious focal liver lesion. Normal gallbladder. No gallstones. Normal caliber intra and extrahepatic bile ducts. PANCREAS: Unremarkable. SPLEEN: There is a 2.3 cm lesion in the superior spleen. This is slightly low signal on T1-weighted sequences, high signal on T2-weighted sequences and demonstrates heterogeneous peripheral gradual enhancement. This likely represents a benign hemangioma. ADRENAL GLANDS: No suspicious adrenal nodule. There may be a small subcentimeter right adrenal nodule. This is not well appreciated on in-phase, [id number] sequences. The left adrenal gland is normal. KIDNEYS AND URETERS: The kidneys are normal in size, shape, and enhance symmetrically. There are small bilateral renal cysts. No imaging follow up recommended. No hydronephrosis. No perinephric stranding. GASTROINTESTINAL TRACT: No bowel obstruction. No ascites or fluid collection. ABDOMINAL WALL: No significant hernia is appreciated. LYMPH NODES: No lymphadenopathy. VASCULAR: Unremarkable. OSSEOUS STRUCTURES: Marrow signal normal. MR/MR abdomen wo/w con IMPRESSION: Enlarged liver. Heterogeneous fatty infiltration of the liver. No focal liver lesion. 2.3 cm splenic hemangioma. Bilateral renal cysts.
== END 2022-06-05 13:29 | disposition home or self-care (01) ==
LOC: HO.MRI 13:28
PROVIDERS: Visit Provider Internal Medicine
DX: R93.2 Abnormal findings on diagnostic imaging of liver and biliary tract (principal)
CPT/HCPCS: 74183; A9585

== ENCOUNTER 2022-09-01 13:48 | Emergency (ER) | payer MEDICARE, OTHER, SELFPAY ==
--- NOTE | ~2022-09-01 | XR_ITS ---
EXAMINATION: XR CHEST CLINICAL INFORMATION: Acute neuro deficits and hypoxia COMPARISON: Previous chest x-ray April 2022 TECHNIQUE: Frontal view of the chest was obtained. FINDINGS: No significant abnormality is noted involving the heart, lungs, mediastinum, bony thorax or soft tissues. XR/XR chest 1V IMPRESSION: Unremarkable examination.
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
--- NOTE | ~2022-09-01 | CT_ITS ---
EXAMINATION: CT HEAD WITHOUT CONTRAST (STROKE PROTOCOL) CLINICAL INFORMATION: Stroke protocol. Neuro deficits acute COMPARISON: None available. TECHNIQUE: Contiguous axial imaging was performed from the skull base to vertex without intravenous administration of contrast. This CT examination was performed using dose optimization techniques as appropriate, variously including the following: *Automated exposure control *Adjustment of mA and/or kV according to patient size (this includes techniques or standardized protocols for targeted exams where dose is matched to indication/reason for exam; i.e. extremities or head) *Use of iterative reconstruction technique DLP: 1354 mGy-cm FINDINGS: There is no evidence of an extra-axial collection. There is no evidence of intra or extra-axial hemorrhage. The ventricles and extra-axial CSF spaces are appropriate. There is a large old infarct or area of encephalomalacia in the left frontal lobe. Edlcid-white matter differentiation is normal. No mass, mass effect or infarct. There are extensive posttraumatic changes to the orbit. There are multiple plates and screws in the superior, inferior and medial wall of the left orbit and left side of the nose. 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 There is soft tissue opacification of the left maxillary sinus. There is a left frontal craniotomy. CT/CT head for stroke IMPRESSION: No acute findings. 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 Extensive posttraumatic changes to the left orbit and nose. This critical result was discussed with Dr. Abraham at 1408 hours on 09/01/2022. It was ascertained that the content and urgency of the report was understood at the time of direct communication.
[2022-09-01 13:51] VITALS: BP 60/41; PULSE 100; O2SAT 95
--- NOTE | 2022-09-01 13:51 | ECG_ITS ---
Test Reason : STROKE Blood Pressure : / mmHG Vent. Rate : 063 BPM Atrial Rate : 063 BPM P-R Int : 192 ms QRS Dur : 100 ms QT Int : 428 ms P-R-T Axes : 039 -19 001 degrees QTc Int : 437 ms Normal sinus rhythm Minimal voltage criteria for LVH, may be normal variant ( R in aVL ) Inferior infarct , age undetermined Abnormal ECG No previous ECGs available Referred By: Giovanny Abraham Electronically Signed By:SAMM SAMSON
[2022-09-01] MEDS: iohexoL 350 MG/ML 100 ML INFUS..BTL IV (14:08)
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
[2022-09-01 14:09] LABS: Glucose, Whole Blood 227 mg/dL (60-115)
[2022-09-01 14:12] VITALS: BP 67/41; PULSE 93; RESP 12; TEMP 36.1; O2SAT 95; BMI 35.2
[2022-09-01] MEDS: 0.9 % Sodium Chloride 1,000 ML 999 ML IV ×2 (14:21→15:26)
[2022-09-01 14:25] LABS: Prothrombin Time Whole Bld POC 12.8 sec (11.1-13.5); ~PT, ~INR - Anti Coag Clinic 1.1 (0.9-1.1)
--- OUTSIDE RECORDS SUMMARY | 2022-09-01 14:43 | XMS_ITS | Continuity of Care Document ---
Author Name Unknown Organization [facility] Address [address] [facility], [address], [address] [place] [id number] Care Team Providers Care Hospice/Home Health Aide Name Role Phone Getachew PETERSEN, Jasmeet De La Vega Primary Care Physician Encounter [facility] Date(s): 04/11/19 - 04/21/19 [facility] [address], [address], [address] [place] [id number]- [facility] Attending Physician: Magaly Cunningham Admitting Physician: Magaly Cunningham Referring Physician: AdmtrMagaly Allergies, Adverse Reactions, Alerts Substance Reaction Severity Status NKA Active Immunizations Given and Recorded Vaccine Date Status Refusal Reason pneumococcal 23-valent vaccine 1 02/06/16 Given Hepatitis A Adult Vaccine 03/28/15 Given Hepatitis A Adult Vaccine 09/13/14 Given Typhoid Vaccine, Inactivated 09/13/14 Given Yellow Fever Vaccine 09/13/14 Given Zoster Vaccine Live 10/04/12 Recorded tetanus/diphtheria/pertussis, acel(Tdap) 10/04/12 Recorded hepatitis B adult vaccine 2 04/27/02 Recorded 1Early/Late Reason: Med Not Available 2Result Comment: [09/13/2014] hep B series completed Medications atorvastatin 20 mg oral tablet 1 tablet = 20 mg, By Mouth, Daily, # 30 tablet, 0 Refills, Maintenance, 04/09/19 8:59:19 EST, Tablet Start Date: 04/09/19 Status: Ordered carBAMazepine 100 mg oral tablet, extended release 100 mg, 1, tablet, By Mouth, Every 12 hours, # 60 tablet, Refills 0, Tot. Refills 0, Maintenance, 04/10/19 15:30:44 EST, Route to Pharmacy Electronically, [facility], 175, cm, 04/10/19 11:56:35 EST, Height, 100, kg, 04/09/19 8:55:57 EST,... Start Date: 04/10/19 Status: Ordered losartan 50 mg oral tablet 50 mg, 1, tablet, By Mouth, Daily, # 30 tablet, Refills 0, Tot. Refills 0, Maintenance, 04/10/19 15:36:01 EST, Route to Pharmacy Electronically, [facility], 175, cm, 04/10/19 11:56:35 EST, Height, 100, kg, 04/09/19 8:55:57 EST, Dry Weight Start Date: 04/10/19 Status: Ordered Omeprazole = 20 mg, By Mouth, Daily, 0 Refills, Maintenance, 05/19/16 11:55:34 Start Date: 05/19/16 Status: Ordered zolpidem 10 mg oral tablet 1 tablet = 10 mg, By Mouth, Daily at bedtime, PRN for sleep, 0 Refills, Maintenance, 05/19/16 11:56:32, Tablet Start Date: 05/19/16 Status: Ordered Problem List Condition Effective Dates Status Health Status Inform ant Advice or immunization for travel(Confirmed) Active Social History Social History Type Response Smoking Status Never smoker entered on: 05/05/16 Sex
--- OUTSIDE RECORDS SUMMARY | 2022-09-01 14:43 | XMS_ITS | Continuity of Care Document ---
Author Name Unknown Organization [facility] Address [address] [place] [id number]- Care Team Providers Care Jr. Systems Administrator Name Role Phone Getachew PETERSEN, Jasmeet De La Vega Primary Care Physician Encounter [facility] Date(s): 11/11/19 - 12/11/[address] [id number]- [facility] Allergies, Adverse Reactions, Alerts Substance Reaction Severity [...] release 100 mg, 1, tablet, By Mouth, 3 times a day, NEW DOSE, # 270 tablet, Refills 3, Tot. Refills 3, Maintenance, 05/30/19 11:11:00 EST, Route to Pharmacy Electronically, [facility]/pharmacy #[id number], 175, cm, 04/28/19 9:01:00 EST, Height, 100, kg, 04/09/19 8:55:00 E... Start Date: 05/30/19 Stop Date: 05/24/20 Status: Ordered CPAP 10 CPAP 10, See Instructions, # 1 each, Refills 0, Tot. Refills 0, Maintenance, with heated humidification, use overnight and naps, [facility] G47.33, 11/11/19 5:43:00 EDT, Compound Start Date: 11/11/19 Status: Ordered Diclofenac = 75 mg, By Mouth, 2 times a day, 0 Refills, Maintenance, 04/28/19 9:02:00 EST Start Date: 04/28/19 Status: Ordered losartan 50 mg oral tablet 50 mg, 1, tablet, By Mouth, Daily, # 30 tablet, Refills 0, Tot. Refills 0, Maintenance, 04/10/19 15:36:01 EST, Route to Pharmacy Electronically, [facility], 175, cm, 04/10/19 11:56:35 EST, Height, [...] ant Advice or immunization for travel(Confirmed) Active Obstructive sleep apnea(Confirmed) Active Social History Social History Type Response Smoking Status Never smoker entered on: 05/05/16 Sex
--- OUTSIDE RECORDS SUMMARY | 2022-09-01 14:43 | XMS_ITS | Continuity of Care Document ---
Author Name Unknown Organization [facility] Address [address] [facility], [address], [address] [place] [address]- Care Team Providers Care Screen Tender Name Role Phone Getachew PETERSEN, Jasmeet De La Vega Primary Care Physician Encounter [facility] Date(s): 01/31/20 - 03/01/20 [facility] [address], [address], [address] [place] [id number] Attending Physician: Magaly Cunningham Admitting Physician: Magaly [...] tablet, By Mouth, 3 times a day, for 90 days, NEW DOSE, # 270 tablet, Refills 3, Tot. Refills 3, Hard Stop 05/24/20 11:11:00 EST, 05/30/19 11:11:00 EST, [id number], cm, 04/28/19 9:01:00 EST, He... Start Date: 05/30/19 Stop Date: 05/24/20 Status: Ordered carBAMazepine 100 mg oral tablet, extended release 100 mg, 1, tablet, By Mouth, 3 times a day, NEW DOSE, # 270 tablet, Refills 3, Tot. Refills 3, Maintenance, 05/24/20 11:11:00 EST, [id number], [facility], cm, 11/08/19 10:51:00 EDT, Height, 100, kg, 04/09/19 8:55:00... Start Date: 05/24/20 Stop Date: 05/19/21 Status: Ordered CPAP 10 CPAP 10, See Instructions, # 1 each, Refills 0, Tot. Refills 0, Maintenance, with heated humidification, use overnight and naps, from [facility]. G47.33, 11/11/19 5:43:00 EDT, Compound Start Date: 11/11/19 Status: Ordered Diclofenac = 75 mg, By Mouth, 2 times a day, 0 Refills, Maintenance, 04/28/19 9:02:00 EST Start Date: 04/28/19 Status: Ordered Flomax 0.4 mg oral capsule 0.4 mg, 1, capsule, By Mouth, Daily, # 7 capsule, Refills 0, Tot. Refills 0, Maintenance, 02/25/20 7:17:00 EDT, [id number], 175, cm, 11/08/19 10:51:00 EDT, Height, 107.1, kg, 02/25/20 6:42:00 EDT, Dry Weight Start Date: 02/25/20 Stop Date: 03/03/20 Status: Ordered losartan 50 mg oral tablet 50 mg, 1, tablet, By Mouth, Daily, # 30 tablet, Refills 0, Tot. Refills 0, Maintenance, 04/10/19 15:36:01 EST, Route to Pharmacy Electronically, [facility], 175, cm, 04/10/19 11:56:35 [...] Status Never smoker entered on: 05/05/16 Sex Male
--- OUTSIDE RECORDS SUMMARY | 2022-09-01 14:43 | XMS_ITS | Continuity of Care Document ---
Author Name Unknown Organization [facility] Address [address] [place] [id number]- Care Team Providers Care Director Of Quality Name Role Phone Getachew PETERSEN, Jasmeet De La Vega Primary Care Physician Encounter [facility] Date(s): 09/01/19 - 10/01/[address] [address]- [facility] Attending Physician: Magaly Cunningham Admitting Physician: Magaly Cunningham Referring Physician: Magaly Cunningham Allergies, Adverse Reactions, Alerts Substance Reaction Severity [...] EST, Tablet Start Date: 04/09/19 Status: Ordered AutoCPAP 9 - 12 AutoCPAP 9 - 12, See Instructions, # 1 each, Refills 0, Tot. Refills 0, Maintenance, with heated humidification, [facility] G47.33, 08/09/19 16:03:00 EDT, Compound Start Date: 08/09/19 Status: Ordered carBAMazepine 100 mg oral tablet, extended release 100 mg, 1, tablet, By Mouth, 3 times a day, NEW DOSE, # 270 tablet, Refills 3, Tot. Refills 3, Maintenance, 05/30/19 11:11:00 EST, Route to Pharmacy Electronically, [facility]/pharmacy #[id number], 175, cm, 04/28/19 9:01:00 EST, Height, 100, kg, 04/09/19 8:55:00 E... Start Date: 05/30/19 Stop Date: 05/24/20 Status: Ordered Diclofenac = 75 mg, By Mouth, 2 times a day, 0 Refills, Maintenance, 04/28/19 9:02:00 EST Start Date: 04/28/19 Status: Ordered losartan 50 mg oral tablet 50 mg, 1, tablet, By Mouth, Daily, # 30 tablet, Refills 0, Tot. Refills 0, Maintenance, 04/10/19 15:36:01 EST, Route to Pharmacy Electronically, [facility], 175, cm, 04/10/19 11:56:35 [...]
--- OUTSIDE RECORDS SUMMARY | 2022-09-01 14:43 | XMS_ITS | Continuity of Care Document ---
Author Name Unknown Organization [facility] Address [address] [place] [id number]- Care Team Providers Care Sheetmetal Worker Name Role Phone Getachew PETERSEN, Jasmeet De La Vega Primary Care Physician [phone] Encounter [facility] Date(s): 11/17/19 - 12/17/[address] [address]- [facility] Allergies, Adverse Reactions, Alerts Substance [...] 05/30/19 11:11:00 EST, Route to Pharmacy Electronically, [facility]/pharmacy #[id number], 175, cm, 04/28/19 9:01:00 EST, [...] 04/10/19 15:36:01 EST, Route to Pharmacy Electronically, [facility], 175, cm, 04/10/19 11:56:35 EST, Height, [...]
--- OUTSIDE RECORDS SUMMARY | 2022-09-01 14:43 | XMS_ITS | Continuity of Care Document ---
Author Name Unknown Organization [facility] Address [address] [place] [address]- Care Team Providers Care Tip Puncher Name Role Phone Lloyd PETERSEN, Lisbeth Primary Care Physician ( [phone] Encounter [facility] Date(s): 06/13/21 - 06/13/[address] [address]- Discharge Disposition: A-D/C Home Attending Physician: Olivia Torres MD Admitting Physician: Olivia Torres MD Referring Physician: Not on Staff, Referring MD Allergies, Adverse Reactions, Alerts No Known Allergies Immunizations Given and Recorded Vaccine Date Status Refusal Reason pneumococcal 23-valent vaccine 1 02/06/16 Given Hepatitis A Adult Vaccine 03/28/15 Given Hepatitis A Adult Vaccine 09/13/14 Given Typhoid Vaccine, Inactivated 09/13/14 Given Yellow Fever Vaccine 09/13/14 Given tetanus/diphtheria/pertussis, acel(Tdap) 10/04/12 Recorded Zoster Vaccine Live 10/04/12 Recorded hepatitis B adult vaccine 2 04/27/02 Recorded 1Early/Late Reason: Med Not Available 2Result Comment: [09/13/2014] hep B series completed Medications atorvastatin 20 mg oral tablet 1 tablet = 20 mg, By Mouth, Daily, # 30 tablet, 0 Refills, Maintenance, 04/09/19 8:59:19 EST, Tablet Start Date: 04/09/19 Status: Ordered Auto BiPAP, Max IPAP 15, min EPAP 6 and PS 5 cmH20 Auto BiPAP, Max IPAP 15, min EPAP 6 and PS 5 cmH20, See Instructions, # 1 each, Refills 0, Tot. Refills 0, Maintenance, with heated humidification, use overnight and [facility]aps[facility] G47.33, 03/18/20 22:54:00 EST, Compound Start Date: 03/18/20 Status: Ordered carBAMazepine 100 mg oral tablet, extended release 100 mg, 1, tablet, By Mouth, 3 times a day, NEW DOSE, # 270 tablet, Refills 3, Tot. Refills 3, Maintenance, 05/24/20 11:11:00 EST, [id number], cm, 11/08/19 10:51:00 EDT, Height, 100, kg, 04/09/19 8:55:00... Start Date: 05/24/20 Stop Date: 05/19/21 Status: Ordered Diclofenac = 75 mg, By Mouth, 2 times a day, 0 Refills, Maintenance, 04/28/19 9:02:00 EST Start Date: 04/28/19 Status: Ordered Flomax 0.4 mg oral capsule 0.4 mg, 1, capsule, By Mouth, Daily, # 7 capsule, Refills 0, Tot. Refills 0, Maintenance, 02/25/20 7:17:00 EDT, [id number], cm, 11/08/19 10:51:00 EDT, Height, 107.1, kg, 02/25/20 6:42:00 EDT, Dry Weight Start Date: 02/25/20 Stop Date: 03/03/20 Status: Ordered losartan 50 mg oral tablet 50 mg, 1, tablet, By Mouth, Daily, # 30 tablet, Refills 0, Tot. Refills 0, Maintenance, 04/10/19 15:36:01 EST, Route to Pharmacy Electronically, [facility], 175, cm, 04/10/19 11:56:35 EST, Height, [...] for travel(Confirmed) Active Obstructive sleep apnea(Confirmed) Active Vital Signs Most recent to oldest [Reference Range]: 1 2 3 Oxygen Saturation [94-100 %] 95 % (06/13/21 10:00 AM) 96 % (06/13/21 7:42 AM) 94 % (06/13/21 5:31 AM) Pulse Rate [55-90 bpm] 77 bpm (06/13/21 10:00 AM) 72 bpm (06/13/21 7:42 AM) 78 bpm (06/13/21 5:31 AM) Blood Pressure [90-138/55-84 mm Hg] 143/90mm Hg *H* (06/13/21 10:00 AM) 148/89mm Hg *H* (06/13/21 7:42 AM) 151/95mm Hg *H* (06/13/21 5:31 AM) Respiratory Rate [16-30 br/min] 20 br/min (06/13/21 10:00 AM) 18 br/min (06/13/21 7:42 AM) 18 br/min (06/13/21 1:30 AM) Temperature [96.8-100.4 DegF] 97.7 DegF (06/13/21 10:00 AM) 98.3 DegF (06/13/21 7:42 AM) 98.4 DegF (06/13/21 5:31 AM) Mode of Delivery (Oxygen) Room air (06/13/21 10:00 AM) Room air (06/13/21 7:42 AM) Room air (06/13/21 5:31 AM) Blood pressure sites Arm, left (06/13/21 5:31 AM) Arm, right (06/13/21 3:30 AM) Arm, right (06/13/21 1:30 AM) Temperature Route Oral (06/13/21 10:00 AM) Oral (06/13/21 7:42 AM) Oral (06/13/21 5:31 AM) Social History Social History Type Response Smoking Status Never smoker entered on: 05/05/16 Sex Male
--- OUTSIDE RECORDS SUMMARY | 2022-09-01 14:43 | XMS_ITS | Continuity of Care Document ---
Author Name Unknown Organization [facility] Address [address] [place] [address]- Care Team Providers Care Order Analyst Name Role Phone Jasmeet Chilel MD Primary Care Physician Encounter [facility] Date(s): 08/16/19 - 08/23/19 [facility] [address] [address]- [facility] Encounter Diagnosis Obstructive sleep apnea(Discharge Diagnosis) - 08/16/19 Attending Physician: Tamera Euceda MD Admitting Physician: Tamera Euceda MD Referring Physician: Jasmeet Chilel MD Allergies, Adverse Reactions, Alerts Substance Reaction Severity [...] heated humidification, use overnight and naps, from [facility]. G47.33, 08/09/19 16:03:00 EDT, Compound Start Date: 08/09/19 Status: Ordered carBAMazepine 100 mg oral tablet, extended release 100 mg, 1, tablet, By Mouth, 3 times a day, NEW DOSE, # 270 tablet, Refills 3, Tot. Refills 3, Maintenance, 05/30/19 11:11:00 EST, Route to Pharmacy Electronically, [facility]/pharmacy #[id number], 175, cm, 04/28/19 9:01:00 EST, [...] 15:36:01 EST, Route to Pharmacy Electronically, [facility], 175, cm, 04/10/19 11:56:35 EST, [...] for travel(Confirmed) Active Obstructive sleep apnea(Confirmed) Active Diagnosis Diagnosis Type Effective Dates Health Status Clinical Service Informant Obstructive sleep apnea Discharge Diagnosis 08/16/19 Vital Signs Most recent to oldest [Reference Range]: 1 Height 175 cm (08/15/19 10:23 AM) Weight 102 kg (08/15/19 10:23 AM) Body Mass Index [18.5-24.99] 33.31 *>HHI* (08/15/19 10:23 AM) Social History Social History Type Response Smoking Status Never smoker entered on: 05/05/16 Sex
--- OUTSIDE RECORDS SUMMARY | 2022-09-01 14:43 | XMS_ITS | Continuity of Care Document ---
Author Name Unknown Organization [facility] Address [address] [place] [id number]- Care Team Providers Care Retail Supervisor Name Role Phone Jasmeet Chilel MD Primary Care Physician Encounter [facility] Date(s): 06/30/19 - 10/01/[address] [address]- [facility] Attending Physician: Clayton IBARRA, Antonieta Ramirez Admitting Physician: Clayton IBARRA, Antonieta Ramirez Referring Physician: Jasmeet Chilel MD Allergies, Adverse [...] 05/30/19 11:11:00 EST, [id number], cm, 04/28/19 9:01:00 EST, Height, [...] 04/10/19 15:36:01 EST, Route to Pharmacy Electronically, [facility] 3, 175, cm, 04/10/19 11:56:35 EST, [...]
--- OUTSIDE RECORDS SUMMARY | 2022-09-01 14:43 | XMS_ITS | Continuity of Care Document ---
Author Name Unknown Organization [facility] Address [address] [facility], [address] Floor, [address] [place] [address]- Care Team Providers Care Shearer Helper Name Role Phone Getachew PETERSEN, Jasmeet De La Vega Primary Care Physician Encounter [facility] Date(s): 06/18/20 - 07/18/20 [facility] [address], [address], [address] [place] [id number] Allergies, Adverse Reactions, Alerts Substance Reaction Severity [...] heated humidification, use overnight and naps, from [facility]. G47.33, 03/18/20 22:54:00 EST, Compound Start Date: 03/18/20 Status: Ordered carBAMazepine 100 mg oral tablet, extended release 100 mg, 1, tablet, By Mouth, 3 times a day, NEW DOSE, # 270 tablet, Refills 3, Tot. Refills 3, Maintenance, 05/24/20 11:11:00 EST, Route to Pharmacy Electronically, [facility]/pharmacy #[id number], 175, cm, 11/08/19 10:51:00 EDT, Height, [...] 02/25/20 7:17:00 EDT, [id number], cm, 11/08/19 10:51:00 EDT, Height, 107.1, kg, 02/25/20 6:42:00 EDT, Dry Weight Start Date: 02/25/20 Stop Date: 03/03/20 Status: Ordered losartan 50 mg oral tablet 50 mg, 1, tablet, By Mouth, Daily, # 30 tablet, Refills 0, Tot. Refills 0, Maintenance, 04/10/19 15:36:01 EST, Route to Pharmacy Electronically, [facility], 175, cm, 04/10/19 11:56:35 EST, Height, [...]
--- OUTSIDE RECORDS SUMMARY | 2022-09-01 14:43 | XMS_ITS | Continuity of Care Document ---
Author Name Unknown Organization [facility] Address Unknown Care Team Providers Care Rig Supervisor Name Role Phone Lisbeth Desai MD Primary Care Physician Encounter [facility] Date(s): 10/14/21 - 11/13/21 [facility] Allergies, Adverse Reactions, Alerts No Known Allergies [...] Comment: [09/13/2014] hep B series completed Medications amLODIPine 5 mg oral tablet 5 mg, 1, tablet, By Mouth, Daily, # 30 tablet, Refills 0, Maintenance, 10/31/21 12:52:00 EDT, Partial fill upon patient request if the prescription is for a schedule II opioid drug. Start Date: 10/31/21 Status: Ordered atorvastatin 20 mg oral tablet 1 tablet [...] heated humidification, use overnight and naps, from [facility]. G47.33, 03/18/20 22:54:00 EST, Compound Start Date: 03/18/20 Status: Ordered carBAMazepine 100 mg oral tablet, extended release 100 mg, 1, tablet, By Mouth, 3 times a day, NEW DOSE, # 270 tablet, Refills 3, Tot. Refills 3, Maintenance, 05/24/20 11:11:00 EST, Route to Pharmacy Electronically, [facility]/pharmacy #[id number], 175, cm, 11/08/19 10:51:00 [...] 02/25/20 7:17:00 EDT, [id number], cm, 11/08/19 10:51:00 EDT, Height, 107.1, kg, 02/25/20 6:42:00 EDT, Dry Weight Start Date: 02/25/20 Stop Date: 03/03/20 Status: Ordered hydrochlorothiazide 25 mg oral tablet 25 mg, 1, tablet, By Mouth, Daily, # 30 tablet, Refills 0, Maintenance, 10/31/21 12:52:00 EDT, Partial fill upon patient request if the prescription is for a schedule II opioid drug. Start Date: 10/31/21 Status: Ordered Keppra 500 mg oral tablet 1 tablet = 500 mg, By Mouth, Every 12 hours, # 60 tablet, 5 Refills, Maintenance, 10/14/21 15:04:00EDT, Tablet, [facility]/pharmacy #[id number], Partial fill upon patient request if the prescription is for a schedule II opioid drug., 175, cm, 11/08/19 10:51:00 ED... Start Date: 10/14/21 Stop Date: 04/12/22 Status: Ordered losartan 50 mg oral tablet 50 mg, 1, tablet, By Mouth, Daily, # 30 tablet, Refills 0, Tot. Refills 0, Maintenance, 04/10/19 15:36:01 EST, Route to Pharmacy Electronically, [facility], 175, cm, 04/10/19 11:56:35 EST, Height, 100, kg, 04/09/19 8:55:57 EST, Dry Weight Start Date: 04/10/19 Status: Ordered Omeprazole = 20 mg, By Mouth, Daily, 0 Refills, Maintenance, 05/19/16 11:55:34 Start Date: 05/19/16 Status: Ordered sildenafil 100 mg oral tablet 1 tablet = 100 mg, By Mouth, Daily, 0 Refills, Maintenance, 10/31/21 12:51:00 EDT, Partial fill upon patient request if the prescription is for a schedule II opioid drug. Start Date: 10/31/21 Status: Ordered valsartan 160 mg oral tablet 160 mg, 1, tablet, By Mouth, Daily, # 30 tablet, Refills 0, Maintenance, 10/31/21 12:53:00 EDT, Partial fill upon patient request if the prescription is for a schedule II opioid drug. Start Date: 10/31/21 Status: Ordered zolpidem 10 mg oral tablet 1 tablet = 10 mg, By Mouth, Daily at bedtime, PRN for sleep, 0 Refills, Maintenance, 05/19/16 11:56:32, Tablet Start Date: 05/19/16 Status: Ordered Problem List Condition Effective Dates Status Health Status Inform ant Advice or immunization for travel(Confirmed) Active Obese class II(Confirmed) Active Obstructive sleep apnea(Confirmed) Active Social History Social History Type Response Smoking Status Never smoker entered on: 05/05/16 Sex Male
--- OUTSIDE RECORDS SUMMARY | 2022-09-01 14:43 | XMS_ITS | Continuity of Care Document ---
Author Name Unknown Organization [facility] Address Unknown Care Team Providers Care Cocoa Room Operator Name Role Phone Getachew PETERSEN, Jasmeet De La Vega Primary Care Physician [phone] Encounter [facility] Date(s): 09/18/21 - 10/18/21 [facility] Allergies, Adverse Reactions, Alerts No [...] heated humidification, use overnight and naps, from [facility]. G47.33, 03/18/20 22:54:00 EST, Compound Start Date: 03/18/20 Status: Ordered carBAMazepine 100 mg oral tablet, extended release 100 mg, 1, tablet, By Mouth, 3 times a day, NEW DOSE, # 270 tablet, Refills 3, Tot. Refills 3, Maintenance, 05/24/20 11:11:00 EST, Route to Pharmacy Electronically, [id number], 175, cm, 11/08/19 10:51:00 EDT, Height, 100, [...] 02/25/20 7:17:00 EDT, [id number], cm, 11/08/19 10:51:00 EDT, Height, 107.1, kg, 02/25/20 6:42:00 EDT, Dry Weight Start Date: 02/25/20 Stop Date: 03/03/20 Status: Ordered Keppra 500 mg oral tablet 1 tablet = 500 mg, By Mouth, Every 12 hours, # 60 tablet, 5 Refills, Maintenance, 10/14/21 15:04:00EDT, Tablet, [facility]/pharmacy #[id number], Partial fill upon patient request if the prescription is for a schedule II opioid drug., 175, cm, 11/08/19 10:51:00 ED... Start Date: 10/14/21 Stop Date: 04/12/22 Status: Ordered losartan 50 mg oral tablet 50 mg, 1, tablet, By Mouth, Daily, # 30 tablet, Refills 0, Tot. Refills 0, Maintenance, 04/10/19 15:36:01 EST, Route to Pharmacy Electronically, [facility], 175, cm, 04/10/19 11:56:35 EST, Height, [...]
--- OUTSIDE RECORDS SUMMARY | 2022-09-01 14:43 | XMS_ITS | Continuity of Care Document ---
Author Name Unknown Organization [facility] Address Unknown Care Team Providers Care Soap Drier Operator Name Role Phone Lisbeth Desai MD Primary Care Physician ( [phone] Encounter [facility] Date(s): 10/31/21 - 11/30/21 [facility] Attending Physician: Magaly Cunningham Admitting Physician: Magaly Cunningham Referring Physician: Magaly Cunningham Allergies, Adverse Reactions, Alerts No Known Allergies [...] EST, Route to Pharmacy Electronically, [facility]/pharmacy #[id number], 175, cm, 11/08/19 10:51:00 EDT, Height, [...] 7:17:00 EDT, Route to Pharmacy Electronically, [facility]/pharmacy #[id number], 175, cm, 11/08/19 10:51:00 EDT, Height, [...] Refills, Maintenance, 10/14/21 15:04:00EDT, Tablet, [facility]/pharmacy #[id number], Partial fill upon patient request if the prescription is for a schedule II opioid drug., 175, cm, 11/08/19 10:51:00 ED... Start Date: 10/14/21 Stop Date: 04/12/22 Status: Ordered losartan 50 mg oral tablet 50 mg, 1, tablet, By Mouth, Daily, # 30 tablet, Refills 0, Tot. Refills 0, Maintenance, 04/10/19 15:36:01 EST, Route to Pharmacy Electronically, [facility], 175, cm, 04/10/19 11:56:35 [...]
--- OUTSIDE RECORDS SUMMARY | 2022-09-01 14:43 | XMS_ITS | Continuity of Care Document ---
Author Name Unknown Organization [facility] Address [address] [facility], [address]r d Floor, [address] [place] [id number]- Care Team Providers Care Fire Suppression Captain Name Role Phone Getachew PETERSEN, Jasmeet De La Vega Primary Care Physician [phone] Encounter [facility] Date(s): 06/15/20 - 07/15/20 [facility] [address], [address] Floor, [address] [place] [id number] Allergies, Adverse Reactions, Alerts Substance Reaction Severity [...] heated humidification, use overnight and naps, from [facility]. G47.33, 03/18/20 22:54:00 EST, Compound Start Date: 03/18/20 Status: Ordered carBAMazepine 100 mg oral tablet, extended release 100 mg, 1, tablet, By Mouth, 3 times a day, NEW DOSE, # 270 tablet, Refills 3, Tot. Refills 3, Maintenance, 05/24/20 11:11:00 EST, Route to Pharmacy Electronically, [facility]/pharmacy #[id number], 175, cm, 11/08/19 10:51:00 EDT, [...] 02/25/20 7:17:00 EDT, [id number], cm, 11/08/19 10:51:00 EDT, Height, 107.1, kg, 02/25/20 6:42:00 EDT, Dry Weight Start Date: 02/25/20 Stop Date: 03/03/20 Status: Ordered losartan 50 mg oral tablet 50 mg, 1, tablet, By Mouth, Daily, # 30 tablet, Refills 0, Tot. Refills 0, Maintenance, 04/10/19 15:36:01 EST, Route to Pharmacy Electronically, [facility], 175, cm, 04/10/19 11:56:35 [...]
--- OUTSIDE RECORDS SUMMARY | 2022-09-01 14:43 | XMS_ITS | Continuity of Care Document ---
Author Name Unknown Organization [facility] ter Address [address] [place] [address]- Care Team Providers Care Timber Mill Worker Name Role Phone Getachew PETERSEN, Jasmeet De La Vega Primary Care Physician [phone] Encounter [facility] Date(s): 02/25/20 - 02/25/[address] [address]- [facility] Discharge Disposition: A-D/C Home Attending Physician: Nile Michael DO Admitting Physician: Nile Michael DO Referring Physician: Not on Staff, Referring MD Allergies, Adverse Reactions, Alerts Substance Reaction [...] 05/30/19 11:11:00 EST, [id number], cm, 04/28/19 9:01:00 EST, He... Start Date: 05/30/19 Stop Date: 05/24/20 Status: Ordered carBAMazepine 100 mg oral tablet, extended release 100 mg, 1, tablet, By Mouth, 3 times a day, NEW DOSE, # 270 tablet, Refills 3, Tot. Refills 3, Maintenance, 05/24/20 11:11:00 EST, [id number] 175, cm, 11/08/19 10:51:00 EDT, Height, 100, kg, 04/09/19 8:55:00... Start Date: 05/24/20 Stop Date: 05/19/21 Status: Ordered CPAP 10 CPAP 10, See Instructions, # 1 each, Refills 0, Tot. Refills 0, Maintenance, with heated humidification, use overnight and naps, from [facility]. G47.33, 11/11/19 5:43:00 EDT, Compound Start Date: 11/11/19 Status: Ordered Diclofenac = 75 mg, By Mouth, 2 times a day, 0 Refills, Maintenance, 04/28/19 9:02:00 EST Start Date: 04/28/19 Status: Ordered Flomax 0.4 mg oral capsule 0.4 mg, 1, capsule, By Mouth, Daily, # 7 capsule, Refills 0, Tot. Refills 0, Maintenance, 02/25/20 7:17:00 EDT, [id number], 175, cm, 11/08/19 10:51:00 EDT, Height, 107.1, kg, 02/25/20 6:42:00 EDT, Dry Weight Start Date: 02/25/20 Stop Date: 03/03/20 Status: Ordered losartan 50 mg oral tablet 50 mg, 1, tablet, By Mouth, Daily, # 30 tablet, Refills 0, Tot. Refills 0, Maintenance, 04/10/19 15:36:01 EST, Route to Pharmacy Electronically, [facility], 175, cm, 04/10/19 11:56:35 EST, Height, 100, kg, 04/09/19 8:55:57 EST, Dry Weight Start Date: 04/10/19 Status: Ordered Omeprazole = 20 mg, By Mouth, Daily, 0 Refills, Maintenance, 05/19/16 11:55:34 Start Date: 05/19/16 Status: Ordered oxyCODONE 5 mg oral tablet 5 mg, 1, tablet, By Mouth, Every 6 hours, PRN, for 3 days, Do not drive or drink alcohol while taking this medication. Partial fill of Rx is OK., # 10 tablet, Refills 0, Tot. Refills 0, Acute 02/28/20 7:18:00 EST, for pain, 02/25/20 7:18:00 EDT, Ro... Start Date: 02/25/20 Stop Date: 02/28/20 Status: Ordered Tylenol Extra Strength Cool 500 mg oral tablet 1 tablet = 500 mg, By Mouth, Every 6 hours, PRN as needed for fever, for 5 days, # 24 tablet, 0 Refills, Acute 03/01/20 7:18:00 EST, 02/25/20 7:18:00 EDT, Tablet, [facility]/pharmacy #[id number], 175, cm, 11/08/19 10:51:00 EDT, Height, 107.1, kg, 02/25/20 6:42:00... Start Date: 02/25/20 Stop Date: 03/01/20 Status: Ordered zolpidem 10 mg oral tablet 1 tablet = 10 mg, By Mouth, Daily at bedtime, PRN for sleep, 0 Refills, Maintenance, 05/19/16 11:56:32, Tablet Start Date: 05/19/16 Status: Ordered Problem List Condition Effective Dates Status Health Status Inform ant Advice or immunization for travel(Confirmed) Active Obstructive sleep apnea(Confirmed) Active Vital Signs Most recent to oldest [Reference Range]: 1 2 3 Weight 107.1 kg (02/25/20 7:46 AM) 107.1 kg (02/25/20 6:42 AM) 107.1 kg (02/25/20 3:55 AM) Oxygen Saturation [94-100 %] 97 % (02/25/20 7:46 AM) 98 % (02/25/20 6:42 AM) 98 % (02/25/20 3:55 AM) Pulse Rate [55-90 bpm] 77 bpm (02/25/20 7:46 AM) 74 bpm (02/25/20 6:42 AM) 69 bpm (02/25/20 3:55 AM) Blood Pressure [90-138/55-84 mm Hg] 154/93mm Hg *H* (02/25/20 7:46 AM) 158/93mm Hg *H* (02/25/20 6:42 AM) 181/100mm Hg *H* (02/25/20 3:55 AM) Respiratory Rate [16-30 br/min] 20 br/min (02/25/20 7:46 AM) 20 br/min (02/25/20 6:42 AM) 18 br/min (02/25/20 3:55 AM) Temperature [96.8-100.4 DegF] 98.6 DegF (02/25/20 6:42 AM) 97.6 DegF (02/25/20 3:55 AM) Mode of Delivery (Oxygen) Room air (02/25/20 7:46 AM) Room air (02/25/20 6:42 AM) Room air (02/25/20 3:55 AM) Blood pressure sites Arm, right (02/25/20 7:46 AM) Arm, right (02/25/20 6:42 AM) Arm, right (02/25/20 3:55 AM) Temperature Route Oral (02/25/20 6:42 AM) Oral (02/25/20 3:55 AM) Dry Weight 107.1 kg (02/25/20 7:46 AM) 107.1 kg (02/25/20 6:42 AM) 107.1 kg (02/25/20 3:55 AM) Social History Social History Type Response Smoking Status Never smoker entered on: 05/05/16 Sex Male
--- OUTSIDE RECORDS SUMMARY | 2022-09-01 14:43 | XMS_ITS | Continuity of Care Document ---
Author Name Unknown Organization [facility] Address [address] [place], [address] Floor, [address] [place] [address]- Care Team Providers Care Desktop Support Consultant Name Role Phone Jasmeet Chilel MD Primary Care Physician [phone] Encounter [facility] Date(s): 07/05/19 - 07/12/19 [facility] [address], [address], [address] [place] [address]- [facility] Attending Physician: Magalis Feliz DNP Referring Physician: Jasmeet Chilel MD Allergies, Adverse [...] 05/30/19 11:11:00 EST, Route to Pharmacy Electronically, [facility]/pharmacy #[id number], 175, cm, 04/28/19 9:01:00 EST, Height, 100, [...] 04/10/19 15:36:01 EST, Route to Pharmacy Electronically, [facility], 175, cm, 04/10/19 11:56:35 EST, [...] oldest [Reference Range]: 1 Height 175 cm (07/05/19 3:05 PM) Weight 102.5 kg (07/05/19 3:05 PM) Oxygen Saturation [94-100 %] 97 % (07/05/19 3:05 PM) Pulse Rate [55-90 bpm] 90 bpm (07/05/19 3:05 PM) Body Mass Index [18.5-24.99] 33.47 *>HHI* (07/05/19 3:05 PM) Blood Pressure [90-138/55-84 mm Hg] 144/ 102mm Hg *H* (07/05/19 3:05 PM) Mode of Delivery (Oxygen) Room air (07/05/19 3:05 PM) Blood pressure sites Arm, right (07/05/19 3:05 PM) Social History Social History Type Response Smoking Status Never smoker entered on: 05/05/16 Sex
--- OUTSIDE RECORDS SUMMARY | 2022-09-01 14:43 | XMS_ITS | Continuity of Care Document ---
Author Name Unknown Organization [facility] Address [address] [facility], [address] Floor, [address] [place] [address]- Care Team Providers Care Reactor Fueling Supervisor Name Role Phone Getachew PETERSEN, Jasmeet De La Vega Primary Care Physician [place] [facility] [place]s): 11/02/19 - 03/01/20 [facility] [address], [address], [address] [place] [address]- Attending Physician: José Yousif MD Admitting Physician: José Yousif MD Allergies, Adverse Reactions, Alerts Substance Reaction [...] 05/30/19 11:11:00 EST, Route to Pharmacy Electronically, [id number], 175, cm, 04/28/19 9:01:00 EST, He... Start Date: 05/30/19 Stop Date: 05/24/20 Status: Ordered carBAMazepine 100 mg oral tablet, extended release 100 mg, 1, tablet, By Mouth, 3 times a day, NEW DOSE, # 270 tablet, Refills 3, Tot. Refills 3, Maintenance, 05/24/20 11:11:00 EST, [id number], cm, 11/08/19 10:51:00 EDT, Height, 100, kg, 04/09/19 8:55:00... Start Date: 05/24/20 Stop Date: 05/19/21 Status: Ordered CPAP 10 CPAP 10, See Instructions, # 1 each, Refills 0, Tot. Refills 0, Maintenance, with heated humidification, use overnight and naps, from [facility]. G47.33, 11/11/19 5:43:00 EDT, Compound Start Date: 11/11/19 Status: Ordered Diclofenac = 75 mg, By Mouth, 2 times a day, 0 Refills, Maintenance, 04/28/19 9:02:00 EST Start Date: 04/28/19 Status: Ordered Flomax 0.4 mg oral capsule 0.4 mg, 1, capsule, By Mouth, Daily, # 7 capsule, Refills 0, Tot. Refills 0, Maintenance, 02/25/20 7:17:00 EDT, [id number] 175, cm, 11/08/19 10:51:00 EDT, Height, 107.1, kg, 02/25/20 6:42:00 EDT, Dry Weight Start Date: 02/25/20 Stop Date: 03/03/20 Status: Ordered losartan 50 mg oral tablet 50 mg, 1, tablet, By Mouth, Daily, # 30 tablet, Refills 0, Tot. Refills 0, Maintenance, 04/10/19 15:36:01 EST, Route to Pharmacy Electronically, [facility], 175, cm, 04/10/19 11:56:35 EST, [...]
--- OUTSIDE RECORDS SUMMARY | 2022-09-01 14:43 | XMS_ITS | Continuity of Care Document ---
Author Name Unknown Organization [facility] Address [address] [place], [address] Floor, [address] [place] [address]- Care Team Providers Care Wharf Hand Name Role Phone Getachew PETERSEN, Jasmeet De La Vega Primary Care Physician Encounter [facility] Date(s): 07/05/19 - 07/15/19 [facility] [address], [address], [address] [place] [address]- [facility] Attending Physician: Magaly Cunningham Admitting Physician: Magaly Cunningham Referring Physician: AdmMagaly soria Allergies, Adverse Reactions, Alerts Substance Reaction Severity [...] 05/30/19 11:11:00 EST, Route to Pharmacy Electronically, [facility]/pharmacy #[id number], 175, cm, 04/28/19 9:01:00 EST, [...] 04/10/19 15:36:01 EST, Route to Pharmacy Electronically, [facility], 175, cm, 04/10/19 11:56:35 EST, [...]
--- OUTSIDE RECORDS SUMMARY | 2022-09-01 14:43 | XMS_ITS | Continuity of Care Document ---
Author Name Unknown Organization [facility] ter Address [address] [place] [address]- Care Team Providers Care Generation Mechanic Helper Name Role Phone Getachew PETERSEN, Jasmeet De La Vega Primary Care Physician [phone] Encounter [facility] Date(s): 04/28/19 - 04/28/[address] [address]- [facility] Attending Physician: Magalis Feliz DNP Allergies, Adverse Reactions, Alerts Substance Reaction Severity [...] tablet, By Mouth, Every 12 hours, # 180 tablet, Refills 3, Tot. Refills 3, Maintenance, 04/28/19 9:27:00 EST, Route to Pharmacy Electronically, [facility]/pharmacy #[id number], 175, cm, 04/28/19 9:01:00 EST, Height, 100, kg, 04/09/19 8:55:00 EST, Dry We... Start Date: 04/28/19 Stop Date: 04/22/20 Status: Ordered Diclofenac = 75 mg, By Mouth, 2 times a day, 0 Refills, Maintenance, 04/28/19 9:02:00 EST Start Date: 04/28/19 Status: Ordered losartan 50 mg oral tablet 50 mg, 1, tablet, By Mouth, Daily, # 30 tablet, Refills 0, Tot. Refills 0, Maintenance, 04/10/19 15:36:01 EST, Route to Pharmacy Electronically, [facility], 175, cm, 04/10/19 11:56:35 [...]
--- OUTSIDE RECORDS SUMMARY | 2022-09-01 14:43 | XMS_ITS | Continuity of Care Document ---
Author Name Unknown Organization [facility] Address [address] [place], [address] Floor, [address] [place] [address]- Care Team Providers Care Director Nurses' Registry Name Role Phone Jasmeet Chilel MD Primary Care Physician [phone] Encounter [facility] Date(s): 04/28/19 - 05/05/19 [facility] [address], [address], [address] [place] [address]- [facility] Attending Physician: Magalis Feliz DNP Referring [...] tablet, Refills 3, Tot. Refills 3, Maintenance, 04/22/20 9:27:00 EST, Route to Pharmacy Electronically, [facility]/pharmacy #[id number], 175, cm, 04/28/19 9:01:00 EST, Height, 100, kg, 04/09/19 8:55:00 ES... Start Date: 04/22/20 Stop Date: 04/17/21 Status: Ordered Diclofenac = 75 mg, By Mouth, 2 times a day, 0 Refills, Maintenance, 04/28/19 9:02:00 EST Start Date: 04/28/19 Status: Ordered losartan 50 mg oral tablet 50 mg, 1, tablet, By Mouth, Daily, # 30 tablet, Refills 0, Tot. Refills 0, Maintenance, 04/10/19 15:36:01 EST, Route to Pharmacy Electronically, [facility], 175, cm, 04/10/19 11:56:35 [...] ant Advice or immunization for travel(Confirmed) Active Vital Signs Most recent to oldest [Reference Range]: 1 Height 175 cm (04/28/19 9:01 AM) Weight 107.5 kg (04/28/19 9:01 AM) Oxygen Saturation [94-100 %] 96 % (04/28/19 9:01 AM) Pulse Rate [55-90 bpm] 80 bpm (04/28/19 9:01 AM) Body Mass Index [18.5-24.99] 35.1 *>HHI* (04/28/19 9:01 AM) Blood Pressure [90-138/55-84 mm Hg] 146/ 88mm Hg *H* (04/28/19 9:01 AM) Mode of Delivery (Oxygen) Room air (04/28/19 9:01 AM) Blood pressure sites Arm, right (04/28/19 9:01 AM) Social History Social History Type Response Smoking Status Never smoker entered on: 05/05/16 Sex
[2022-09-01 14:44] VITALS: BP 80/46
--- OUTSIDE RECORDS SUMMARY | 2022-09-01 14:44 | XMS_ITS | Continuity of Care Document ---
Author Name Unknown Organization [facility] Address [address] [facility], [address] Floor, [address] [place] [address]- Care Team Providers Care Instrument Maintenance Supervisor Name Role Phone Getachew PETERSEN, Jasmeet De La Vega Primary Care Physician [place] [facility] [place] 05/02/19 - 05/09/19 [facility] [address] [place], 3rd Floor, [address] [place] [address]- [facility] Attending Physician: Magalis Feliz DNP Allergies, Adverse [...] 04/22/20 9:27:00 EST, Route to Pharmacy Electronically, [facility]/pharmacy #[id number], 175, cm, 04/28/19 9:01:00 EST, Height, [...] 04/10/19 15:36:01 EST, Route to Pharmacy Electronically, [facility], 175, cm, 04/10/19 11:56:35 EST, [...]
--- OUTSIDE RECORDS SUMMARY | 2022-09-01 14:44 | XMS_ITS | Continuity of Care Document ---
Author Name Unknown Organization [facility] Address [address] [place] [address]- Care Team Providers Care Graphic Pre Press Trades Worker Name Role Phone Getachew PETERSEN, Jasmeet De La Vega Primary Care Physician Encounter [facility] Date(s): 03/12/20 - 04/11/20 [facility] [address] [address]- Attending Physician: Magaly Cunningham Admitting Physician: Magaly [...] EST, [id number] 175, cm, 04/28/19 9:01:00 EST, He... Start Date: 05/30/19 Stop Date: 05/24/20 Status: Ordered carBAMazepine 100 mg oral tablet, extended release 100 mg, 1, tablet, By Mouth, 3 times a day, NEW DOSE, # 270 tablet, Refills 3, Tot. Refills 3, Maintenance, 05/24/20 11:11:00 EST, [id number] 175, cm, 11/08/19 10:51:00 EDT, [...] EDT, [facility], [id number] 175, cm, 11/08/19 10:51:00 EDT, Height, 107.1, kg, 02/25/20 6:42:00 EDT, Dry Weight Start Date: 02/25/20 Stop Date: 03/03/20 Status: Ordered losartan 50 mg oral tablet 50 mg, 1, tablet, By Mouth, Daily, # 30 tablet, Refills 0, Tot. Refills 0, Maintenance, 04/10/19 15:36:01 EST, Route to Pharmacy Electronically, [facility], 175, cm, 04/10/19 11:56:35 EST, Height, [...]
--- OUTSIDE RECORDS SUMMARY | 2022-09-01 14:44 | XMS_ITS | Continuity of Care Document ---
Author Name Unknown Organization [facility] ter Address [address] [place] [address]- Care Team Providers Care Phone Screener Name Role Phone Lloyd PETERSEN, Lisbeth Primary Care Physician ( [phone] En[place] [facility] [place] [place] [id number] Date(s): 11/29/21 - 11/29/[address] [address]- Discharge Disposition: A-D/C [facility] Attending Physician: Trena Quiñones MD Admitting Physician: Trena Quiñones MD Referring Physician: Not on Staff, Referring [...] Comment: [09/13/2014] hep B series completed Medications Acetaminophen Tablet 650 mg, Tablet, By Mouth, Once, STAT, 11/29/21 17:16:00 EDT, Stop date 11/29/21 17:16:00 EDT Start Date: 11/29/21 Stop Date: 11/29/21 Status: Completed amLODIPine 5 mg oral tablet 5 mg, [...] use overnight and naps, from [facility]. G47.33, 03/18/20 22:54:00 EST, Compound Start Date: 03/18/20 Status: Ordered carBAMazepine 100 mg oral tablet, extended release 100 mg, 1, tablet, By Mouth, 3 times a day, NEW DOSE, # 270 tablet, Refills 3, Tot. Refills 3, Maintenance, 05/24/20 11:11:00 EST, Route to Pharmacy Electronically, [facility]/pharmacy #[id number], 175, cm, 11/08/19 10:51:00 [...] 02/25/20 7:17:00 EDT, Route to Pharmacy Electronically, [facility]/pharmacy #[id number], 175, cm, 11/08/19 10:51:00 [...] tablet, 5 Refills, Maintenance, 10/14/21 15:04:00EDT, Tablet, [facility]/pharmacy #[id number], Partial fill upon patient request if the prescription is for a schedule II opioid drug., 175, cm, 11/08/19 10:51:00 ED... Start Date: 10/14/21 Stop Date: 04/12/22 Status: Ordered losartan 50 mg oral tablet 50 mg, 1, tablet, By Mouth, Daily, # 30 tablet, Refills 0, Tot. Refills 0, Maintenance, 04/10/19 15:36:01 EST, Route to Pharmacy Electronically, [facility], 175, cm, 04/10/19 [...] class II(Confirmed) Active Obstructive sleep apnea(Confirmed) Active Vital Signs Most recent to oldest [Reference Range]: 1 2 3 Oxygen Saturation [94-100 %] 100 % (11/29/21 7:43 PM) 97 % (11/29/21 5:46 PM) 97 % (11/29/21 3:21 PM) Pulse Rate [55-90 bpm] 65 bpm (11/29/21 7:43 PM) 64 bpm (11/29/21 5:46 PM) 64 bpm (11/29/21 3:21 PM) Blood Pressure [90-138/55-84 mm Hg] 119/74mm Hg (11/29/21 7:43 PM) 112/76mm Hg (11/29/21 5:46 PM) 128/78mm Hg (11/29/21 3:21 PM) Respiratory Rate [16-30 br/min] 16 br/min (11/29/21 7:43 PM) 18 br/min (11/29/21 6:22 PM) 16 br/min (11/29/21 5:46 PM) Temperature [96.8-100.4 DegF] 97.6 DegF (11/29/21 3:21 PM) Mode of Delivery (Oxygen) Room air (11/29/21 7:43 PM) Room air (11/29/21 5:46 PM) Room air (11/29/21 3:21 PM) Blood pressure sites Arm, left (11/29/21 7:43 PM) Arm, left (11/29/21 5:46 PM) Arm, right (11/29/21 3:21 PM) Temperature Route Oral (11/29/21 3:21 PM) Social History Social History Type Response Smoking Status Never smoker entered on: 05/05/16 Sex Male
--- OUTSIDE RECORDS SUMMARY | 2022-09-01 14:44 | XMS_ITS | Continuity of Care Document ---
Author Name Unknown Organization [facility] Address [address] [facility], [address]r d Floor, [address] [place] [address]- Care Team Providers Care Furnace Mason Name Role Phone Getachew PETERSEN, Jasmeet De La Vega Primary Care Physician [phone] Encounter [facility] Date(s): 03/09/20 - 04/08/20 [facility] [address], [address], [address] [place] [address] Allergies, Adverse Reactions, Alerts Substance Reaction [...] use overnight and naps, from [facility]. G47.33, 03/18/20 22:54:00 EST, Compound Start Date: 03/18/20 Status: Ordered carBAMazepine 100 mg oral tablet, extended release 100 mg, 1, tablet, By Mouth, 3 times a day, for 90 days, NEW DOSE, # 270 tablet, Refills 3, Tot. Refills 3, Hard Stop 05/24/20 11:11:00 EST, 05/30/19 11:11:00 EST, [id number] 175, cm, 04/28/19 9:01:00 EST, He... Start Date: 05/30/19 Stop Date: 05/24/20 Status: Ordered carBAMazepine 100 mg oral tablet, extended release 100 mg, 1, tablet, By Mouth, 3 times a day, NEW DOSE, # 270 tablet, Refills 3, Tot. Refills 3, Maintenance, 05/24/20 11:11:00 EST, [id number], 175, cm, 11/08/19 10:51:00 EDT, Height, [...] 02/25/20 7:17:00 EDT, [id number], 175, cm, 11/08/19 10:51:00 EDT, Height, 107.1, kg, 02/25/20 6:42:00 EDT, Dry Weight Start Date: 02/25/20 Stop Date: 03/03/20 Status: Ordered losartan 50 mg oral tablet 50 mg, 1, tablet, By Mouth, Daily, # 30 tablet, Refills 0, Tot. Refills 0, Maintenance, 04/10/19 15:36:01 EST, Route to Pharmacy Electronically, [facility], 175, cm, 04/10/19 11:56:35 EST, Height, 100, kg, 12/14/19 8:55:57 EST, Dry Weight Start Date: 04/10/19 [...]
--- OUTSIDE RECORDS SUMMARY | 2022-09-01 14:44 | XMS_ITS | Continuity of Care Document ---
Author Name Unknown Organization [facility] Address [address] [place], [address] d Floor, [address] [place] [address]- Care Team Providers Care Paramedic Rn Name Role Phone Getachew PETERSEN, Jasmeet De La Vega Primary Care Physician [phone] [place] [facility] Date(s): 05/02/19 - 05/12/19 [facility] [address], [address], [address] [place] [address]- [facility] Attending Physician: Magaly Cunningham Admitting Physician: Magaly [...] 04/22/20 9:27:00 EST, Route to Pharmacy Electronically, [facility]/pharmacy #[id number], 175, cm, 04/28/19 [...] 04/10/19 15:36:01 EST, Route to Pharmacy Electronically, [facility], 175, cm, 04/10/19 11:56:35 EST, [...]
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
[2022-09-01 15:15] LABS: MANUAL DIFF FLAG NO
[2022-09-01 15:20] LABS: Basophils Percent Auto 0.2 % (0-2); Eosinophils Absolute Auto 0.1 X10*3/uL (0.0-0.4); Eosinophils Percent Auto 0.5 % (0-4); Hematocrit 49.4 % (42.0-52.0); Hemoglobin 16.4 g/dl (14.0-18.0); Imm Gran Abs Auto 0.05 X10*3/uL (0.00-0.03); Imm Gran Pct Auto 0.4 % (0.0-0.4); Lymphocytes Absolute Auto 1.3 X10*3/uL (1.2-4.9); Mean Corpuscular HGB Conc 33.2 g/dl (31.0-36.0); Mean Corpuscular Hemoglobin 31.2 pg (27.0-33.0); Mean Corpuscular Volume 94.1 fL (80.0-98.0); Mean Platelet Volume 10.6 fL (9.4-12.4); Monocytes Absolute Auto 0.8 X10*3/uL (0.1-1.2); Monocytes Percent Auto 5.7 % (2-11); Neutrophils Percent Auto 83.2 % (45-73); Platelet Count 217 X10*3/uL (160-400); Red Blood Count 5.25 X10*6/uL (4.60-5.80); Red Cell Distribution Width 14.3 % (11.0-16.0); White Blood Count 13.3 X10*3/uL (4.8-10.8)
[2022-09-01 15:33] LABS: Glucose Random 165 mg/dL (60-115)
[2022-09-01 15:37] LABS: Ethanol < 10 mg/dL
[2022-09-01 15:41] VITALS: BP 88/56; PULSE 62; RESP 12; O2SAT 95
[2022-09-01 15:41] LABS: Lactic Acid 3.8 mmol/L (0.5-2.0)
[2022-09-01 15:42] LABS: Appearance Urine Turbid; Color Urine Yellow; Glucose Urine UA 100 mg/dL (Negative); Leukocyte Esterase Urine Negative (Negative); Nitrite Urine Negative (Negative); Specific Gravity - Urine >= 1.030 (1.005-1.025); UMIC TRIGGER UACC YES; Urine Blood Trace (Negative); Urine Ketones Negative (Negative); Urine Protein 100 (2+) mg/dL (Neg-Trace)
[2022-09-01 15:46] LABS: Bacteria Urine None Seen (None Seen); Hyaline Casts Urine 0-2 /LPF (0-2); RBC Urine 0-2 /HPF (0-2); Squamous Epithelial Cell Urine 0-2 /HPF (0-2); WBC Urine 0-5 /HPF (0-5)
[2022-09-01 15:48] LABS: Anion Gap 15 (12-20); Blood Urea Nitrogen 20 mg/dL (9-16); Calcium 8.1 mg/dL (8.4-10.2); Carbon Dioxide 16 mmol/L (22-29); Chloride 113 mmol/L (96-108); Creatinine Clr Calc Pharmacy 71.7; Estimated Glomerular Filt Rate 58; Glucose Random 162 mg/dL (60-115); Magnesium 1.8 mg/dL (1.6-2.6); Potassium 3.4 mmol/L (3.3-5.1); Sodium 141 mmol/L (135-145)
[2022-09-01 15:58] LABS: Thyroid Stimulating Hormone 3.86 uIU/mL (0.32-4.0)
[2022-09-01 16:08] LABS: Stroke Lab Use COMPLETE
[2022-09-01 16:15] LABS: Amphetamine Screen Urine Not Detected (Not Detect); Barbiturates, Urine Not Detected (Not Detect); Benzodiazepines Screen Urine Not Detected (Not Detect); Cannabinoid Screen Urine Not Detected (Not Detect); Cocaine Screen Urine Not Detected (Not Detect); Fentanyl, urine Not Detected (Not Detect); Opiate Screen Urine Not Detected (Not Detect); Phencyclidine Screen Urine Not Detected (Not Detect)
[2022-09-01] MEDS: cefTRIAXone sodium 1 GM in 0.9 % Sodium Chloride 50 ML IV (16:39)
[2022-09-01 16:44] LABS: Glucose, Whole Blood 121 mg/dL (60-115)
[2022-09-01 17:14] LABS: Reflex Lactate? Lactic Acid Added
[2022-09-01 17:28] VITALS: BP 126/85
[2022-09-01] MEDS: levETIRAcetam 1,000 MG TABLET 1000 MG PO (17:28)
[2022-09-01 17:54] LABS: Lactic Acid 2.5 mmol/L (0.5-2.0)
[2022-09-01 18:47] VITALS: BP 131/79
[2022-09-01 19:34] LABS: Reflex Lactate? Lactic Acid Added
== END 2022-09-01 18:47 | disposition home or self-care (01) ==
PROVIDERS: Emergency Provider Emergency Medicine; PCP Internal Medicine
DX: R56.9 Unspecified convulsions (principal); I95.9 Hypotension, unspecified; R51.9 Headache, unspecified; M54.2 Cervicalgia; R09.02 Hypoxemia; R29.810 Facial weakness; R94.31 Abnormal electrocardiogram [ECG] [EKG]; R29.818 Other symptoms and signs involving the nervous system; Z79.899 Other long term (current) drug therapy
CPT/HCPCS: 36415; 70450; 70496; 70498; 71045; 80048; 80307; 81001; 82550; 82947; 83605; 83735; 84100; 84443; 84484; 85025; 85610; 85730; 87040; 93005; 96361; 96374; 99285; J0696; Q9967